=== PATIENT | male | born 1955 | race Caucasian/White ===

== ENCOUNTER 2018-09-07 04:54 | Inpatient (IN) | payer OTHER ==
[2018-09-07 05:52] LABS: #Basophils 0.2 thou/uL (0.0-0.2); #Eosinphils 0.3 thou/uL (0.0-0.7); #Lymphocytes 1.9 thou/uL (1.20-3.40); #Monocytes 1.1 thou/uL (0.11-0.59); #Neutrophils 9.3 thou/uL (1.40-6.50); %Basophils 1.5 % (0.0-1.0); %Lymphocytes 14.9 % (21.0-51.0); %Monocytes 8.7 % (0.0-10.0); %Neutrophils 72.8 % (42.0-75.0); Hemoglobin 15.9 g/dL (14.0-18.0); Mean Corpuscular HGB CONC 33.7 g/dL (32.0-36.0); Mean Corpuscular Hemoglobin 31.3 pg (27.0-31.0); Mean Corpuscular Volume 92.9 fL (78.0-98.0); Mean Platelet Volume 7.7 fL (7.4-10.4); Platelet Count 227 thou/uL (130-400); RBC Distribution Width 11.3 % (11.5-14.5); Red Blood Cell (RBC) Count 5.07 mill/uL (4.70-6.10); White Blood Cell (WBC) Count 12.7 thou/uL (4.8-10.8)
[2018-09-07 06:04] LABS: ALT (SGPT) 30 U/L (8-55); AST (SGOT) 25 U/L (5-34); Albumin 4.6 g/dL (3.4-4.8); Alkaline Phosphatase 74 U/L (40-150); Anion Gap 15 mmol/L (10-20); BUN (Urea Nitrogen) 23 mg/dL (8.4-25.7); Bilirubin, Total 0.6 mg/dL (0.2-1.2); CK (CPK) 351 U/L (30-200); Calc. Creatinine Clearance 0 mL/min (70-130); Calcium 9.3 mg/dL (7.8-10.44); Carbon Dioxide 22 mmol/L (23-31); Chloride 105 mmol/L (98-107); Estimated GFR-MDRD 73; Globulin 2.3 g/dL (2.4-3.5); Glucose 151 mg/dL (80-115); Lipase 22 U/L (8-78); Potassium 3.9 mmol/L (3.5-5.1); Protein, Total 6.9 g/dL (5.8-8.1); Sodium 138 mmol/L (136-145)
[2018-09-07 06:35] LABS: CKMB 8.7 ng/mL (0-6.6)
[2018-09-07] MEDS ORDERED: Aspirin Chewable 81 MG TAB ONE (06:41)
--- NOTE | 2018-09-07 07:49 | RAD ---
CHEST 1 VIEW: INDICATION: Midsternal left-sided chest pain. COMPARISON: None. FINDINGS: Low lung volumes accentuate the cardiac silhouette and pulmonary vasculature. No consolidation, pleu ral effusion, or pneumothorax evident. No acute osseous abnormality is evident. IMPRESSION: Low lung volumes. POS: BH
[2018-09-07] MEDS ORDERED: Ondansetron PF 4 MG/2 ML Vial IVP PRN (08:17)
[2018-09-07] MEDS ORDERED: Ondansetron ODT 4 MG TAB SL PRN (08:17)
[2018-09-07] MEDS ORDERED: Meloxicam 15 MG TAB PO PRN (09:06)
[2018-09-07] MEDS ORDERED: Dextrose 5% in Water 1,000 ML IV PRN (09:07)
[2018-09-07] MEDS ORDERED: Dextrose 50% Abboject 50 ML SYRINGE SLOW IVP PRN (09:07)
[2018-09-07] MEDS ORDERED: HumaLOG 300 UNITS/3 ML VIAL SC PRN ×2 (09:07)
[2018-09-07] MEDS ORDERED: Amlodipine 10 MG TAB PO SCH (09:15)
[2018-09-07 09:37] LABS: Troponin I 0.528 ng/mL (< 0.028)
[2018-09-07] MEDS ORDERED: Iopamidol 370 76% 100 ML VIAL ONE (09:54)
--- NOTE | 2018-09-07 12:04 | HP ---
CHIEF COMPLAINT: Chest pain. HISTORY OF PRESENT ILLNESS: Mr. Toscano is a 62-year-old man with a known history of hypertension, who presented to the emergency department this morning with complaints of chest pain. The patient states in retrospect he recalls having intermittent episodes of pain on the left side of his chest for the last 3 days with associated pain in his jaw bilaterally. He states it was not severe, approximately 5/10 in severity and therefore did not pay much attention to it. He recalls having significant discomfort yesterday around noon while eating and states it felt as if something got stuck in his throat. His gave him some apple cider vinegar, which he states helped to relieve what he thought was indigestion. He denies having any associated diaphoresis, nausea, or vomiting. No shortness of breath. He remained asymptomatic until 03:00 a.m. this morning when he woke up with left-sided chest pain again associated with discomfort in the jaw. The patient is unable to quantify how severe the pain was, but states that apart from the jaw pain, there is no radiation down his arms or through to his back. It lasted for approximately 1 hour, therefore prompting his family to bring him in for further assessment. The patient states since then he has had no recurring pain and no other symptoms. He has not had any lightheadedness or dizziness. Denies having any abdominal pain. No lower leg swelling. He has never experienced pain-like this in the past. He was evaluated in the emergency department and underwent an EKG that did not show any ST changes or T-wave abnormalities. He underwent laboratory studies, which were notable for a slightly elevated white count of 12.7 and an indeterminate troponin of 0.174 as well as a CK-MB of 8.7 and a CK of 351. The patient was admitted for further monitoring and cardiac investigations. Upon arriving to the floor, we received a call on a critical result for his second troponin, which is further elevated at 0.528. The patient remained asymptomatic at present. Of note, per the patient's following that episode of dysphagia yesterday, he was noted to be hypertensive with a systolic blood pressure in the 220s. Once the pain resolved on its own, his blood pressure eventually did settle down to the normal range. He typically runs in the 140s to 150s, but it did appears to have taken several hours to normalize. REVIEW OF SYSTEMS: Apart from those mentioned above in HPI, all other review of systems are negative. He does report a chronic cough, which remains unchanged, and denies having any sputum or hemoptysis. Again, no associated shortness of breath. PAST MEDICAL HISTORY: 1. Hypertension. 2. Arthritis. 3. Type-2 diabetes mellitus. 4. Tobacco use. PAST SURGICAL HISTORY: 1. Hernia repair. 2. Left knee surgery. SOCIAL HISTORY: The patient currently smokes and chews tobacco. Denies any illicit drug use. ALLERGIES: NO KNOWN DRUG ALLERGIES. CURRENT MEDICATIONS: 1. Amlodipine. 2. Metformin. 3. Meloxicam. PHYSICAL EXAMINATION: GENERAL: The patient appears well-developed, well-nourished, is in no acute distress. VITAL SIGNS: Temperature 97.6, pulse 76, respirations 14, O2 saturation 95% on room air, blood pressure 171/103. HEENT: Normocephalic, atraumatic. Pupils are equal, round, and reactive to light. Sclerae without icterus. Oropharynx is clear. NECK: Supple without lymphadenopathy. LUNGS: Clear to auscultation bilaterally without any wheezes or rhonchi. CARDIAC: Regular rate and rhythm. No chest wall tenderness. ABDOMEN: Obese, soft, nontender, nondistended. Normoactive bowel sounds present. No guarding or rigidity. No renal angle tenderness. EXTREMITIES: Without any edema or swelling. NEUROLOGIC: Alert and oriented x3. No neuro deficits. SKIN: Without rash or jaundice. LABORATORY AND IMAGING DATA: Laboratory investigations as mentioned above in HPI. Chest x-ray done on 09/07/2018. Low lung volumes accentuate the cardiac silhouette and pulmonary vasculature. No consolidation, pleural effusion, or pneumothorax. No bony abnormalities. IMPRESSION AND PLAN: Mr. Toscano is a 62-year-old man, who is being admitted for ACS rule out, who is presented with intermittent chest pain for the last 3 days, worse in early hours this morning with an indeterminate troponin in the Emergency Department. Second troponin is elevated further at 0.528. Cardiology consult placed and I have notified Dr. House. We have requested a repeat ECG. We will continue to monitor. At present, his blood pressure is 167/105. We will recheck since the patient has recently been given his morning dose of amlodipine. He remains asymptomatic. He has been given aspirin 325 mg in the ER. Otherwise, has not received any treatment. We will discuss with Dr. Garrett for further recommendations. The patient is a full code status. His surrogate decision maker is his , Eliane Toscano. Job ID: [id number]
[2018-09-07 12:20] LABS: Troponin I 2.277 ng/mL (< 0.028)
[2018-09-07] MEDS ORDERED: Sodium Chloride 0.9% 1,000 ML IV SCH ×2 (14:30→15:45)
[2018-09-07] MEDS ORDERED: Communication Order-Pharmacy FS SCH (14:30)
--- NOTE | 2018-09-07 14:49 | CON ---
DATE OF CONSULTATION: 09/07/2018 REASON FOR CONSULTATION: Non-STEMI. HISTORY OF PRESENT ILLNESS: Mr. Toscano is a very pleasant 62-year-old white gentleman, who comes to the hospital for chest pain. He has been having on and off chest pain for the last 3 days in the midsternal area. This morning, he woke up and he had severe midsternal chest pain, pretty much the same as before because it is becoming to be more prominent now at rest. He decided to come in for evaluation. He initially had a normal troponin, but has since increased to a positive range, so Cardiology has been consulted. On my evaluation, he is chest pain free. PAST MEDICAL HISTORY: 1. Hypertension. 2. Osteoarthritis. 3. Type 2 diabetes. 4. Tobacco use. PAST SURGICAL HISTORY: 1. Hernia repair. 2. Left knee surgery. SOCIAL HISTORY: He currently chews tobacco. Denies any drug or alcohol use. ALLERGIES: NO KNOWN DRUG ALLERGIES. OUTPATIENT MEDICATIONS: 1. Amlodipine 10 mg a day. 2. Metformin 1000 mg b.i.d. 3. Meloxicam. 4. Multivitamin daily. ALLERGIES: NO KNOWN DRUG ALLERGIES. FAMILY HISTORY: Noncontributory. REVIEW OF SYSTEMS: A 12-point review of systems was done and was all negative unless stated in the history of present illness. PHYSICAL EXAMINATION: VITAL SIGNS: Temperature 97.6, pulse 74, respiratory rate 18, saturating 94% on room air, and blood pressure 164/101. GENERAL: Awake, alert, and oriented x3, in no distress. HEENT: Normocephalic, atraumatic. NECK: Supple. LUNGS: Clear. CARDIOVASCULAR: S1 and S2. No S3 or S4. No murmurs. ABDOMEN: Soft. Positive bowel sounds. EXTREMITIES: No edema. SKIN: Warm and dry. LABORATORY DATA: Laboratory work was reviewed. White count of 12, hemoglobin 15, hematocrit 47, and platelet count 227. Chemistries were unremarkable. BUN and creatinine 23 and 1.03, GFR of 73. Troponin was 0.17, then 0.5, and then 2.27 with a CK-MB of 8.7. Albumin of 4.6. Lipase was normal. IMAGING DATA: EKG was reviewed. ASSESSMENT AND PLAN: 1. [id number] myocardial infarction. 2. Hypertension. 3. Type 2 diabetes. PLAN: 1. We will proceed with left heart catheterization. We spoke at length about the risks and benefits of the procedure. Risks included, but not limited to, stroke, CA, , bleeding, need for blood transfusion, limb loss, organ loss. He understands and verbalized understanding of this and agrees to proceed. Drug-eluting stents if needed. 2. Further recommendations per results of coronary angiogram. Job ID: [id number]
[2018-09-07] MEDS ORDERED: Diazepam 5 MG TAB PO SCH (15:00)
[2018-09-07 15:11] LABS: Troponin I 6.325 ng/mL (< 0.028)
[2018-09-07] MEDS ORDERED: Midazolam HCl 2 mg/2 ml Vial ONE (15:13)
[2018-09-07] MEDS ORDERED: Fentanyl 100 MCG/2 ML VIAL ONE (15:14)
[2018-09-07] MEDS ORDERED: Heparin 10,000 UNITS/1 ML VIAL ONE (15:14)
[2018-09-07] MEDS ORDERED: Nitroglycerin 0.4 MG TAB (25 Tab Bottle) SL PRN (15:40)
[2018-09-07] MEDS ORDERED: Sodium Chloride 0.9% 200 ML IV PRN (15:40)
[2018-09-07] MEDS ORDERED: Acetaminophen/Codeine 30-300mg Tablet PO PRN (15:40)
[2018-09-07] MEDS ORDERED: Aspirin 325 MG TAB PO SCH (15:45)
[2018-09-07] MEDS: Carvedilol 3.125 MG TAB PO SCH (18:21)
--- NOTE | 2018-09-07 19:04 | CON ---
DATE OF CONSULTATION: HISTORY OF PRESENT ILLNESS: This is a 62-year-old gentleman with a diagnosis of diabetes mellitus within the past year and longstanding hypertension, who began having some intermittent chest and jaw discomfort a several days ago with a more prolonged episode earlier this morning, prompting admission to the hospital, where he was noted to have an increase in his troponin peaking at about 6. He underwent cardiac catheterization today showing some calcification and otherwise normal LAD with discrete lesions and a larger first diagonal and a smaller second diagonal, a discrete lesion in the first obtuse marginal and second obtuse marginal essentially being normal and the distal circ being occluded or subtotally occluded filling from [id number] that was probably big enough to graft. His right system consisted of an acute marginal and a small PDA, both of which had some disease. The left ventricular systolic function appeared overall preserved and echo is pending at this time. PAST MEDICAL HISTORY: His past medical history as mentioned includes hypertension and the patient states that his hypertension is not real well controlled with typical systolic pressure being about 150 and diastolic pressure being about 80. Diabetes mellitus was diagnosed about a year ago and he was placed on medication and his A1c has gone from about 7 to about 5 on medication. PAST SURGICAL HISTORY: His past surgical history includes a knee arthroscopy and hernia repair. SOCIAL HISTORY: He is a nonsmoker, but does chew tobacco. He is . He is retired after 40 years at the [employer]. HOME MEDICATIONS: Included; 1. Amlodipine 10 mg a day. 2. Metformin 1000 b.i.d. 3. Meloxicam 15 mg p.r.n.. 4. Multivitamins. 5. He has had the addition of lisinopril 2.5 a day and Coreg 3.125 b.i.d. to his medical regimen. ALLERGIES: HE HAS NO KNOWN ALLERGIES. PHYSICAL EXAMINATION: GENERAL: On examination, he is alert and cooperative gentleman. Height 6 feet, weight recorded as 281 pounds, although certainly does not look that big. NECK: Right carotid bruit. LUNGS: Clear to auscultation. Cardiac: Regular rate and rhythm. No murmurs. ABDOMEN: Obese, soft, and nontender. No aneurysm. EXTREMITIES: He has palpable left radial pulse with a good Dominic's test. He has palpable pedal pulses in both feet with no peripheral edema. Cardiac catheterization was reviewed and he could have graft to the first diagonal, first obtuse marginal, and the distal circ. Other possible graft sites include the second diagonal, which was rather small as well as the acute marginal. I think the PDA is probably too small distally to graft. Informed consent has been obtained and tentatively plan on surgical intervention on Monday if the schedule permits. Job ID: [id number]
[2018-09-07] MEDS: Atorvastatin Calcium 40 MG TAB PO SCH (20:37)
--- NOTE | 2018-09-07 23:33 | ULT ---
BILATERAL CAROTID DUPLEX ULTRASOUND: HISTORY: Carotid bruit TECHNIQUE: Grayscale, color-flow and spectral Doppler ultrasound imaging of the extracranial carotid artery syst ems was performed bilaterally. FINDINGS: Only very minimal atherosclerotic plaque is seen at the left carotid bulb. There is no hemodynamically significant stenosis in the bilateral internal carotid arteries according to the peak systolic velocities and the ICA/CCA ratios. The peak systolic velocity in the right ICA measures 57.2 cm/s. The peak systolic velocity in the left ICA measures 56.3 cm/s. The right IC A/CCA ratio is 0.5 to with the left ICA/CCA ratio of 0.6. Vertebral arteries: Antegrade flow is demonstrated in the vertebral arteries bilaterally. IMPRESSION: No hemodynamically significant stenosis in the bilateral internal carotid arteries.
[2018-09-08] MEDS ORDERED: Diazepam 5 MG TAB PO PRN (00:24)
[2018-09-08] MEDS ORDERED: Lisinopril 2.5 MG TAB PO SCH (09:00)
[2018-09-08] MEDS ORDERED: Zolpidem Tartrate 5 MG TAB PO PRN (09:22)
[2018-09-08] MEDS: Aspirin 325 MG TAB PO SCH (09:42)
[2018-09-08] MEDS: Lisinopril 2.5 MG TAB PO SCH ×2 (09:42→20:06)
[2018-09-08] MEDS: Amlodipine 10 MG TAB PO SCH (09:43)
[2018-09-08] MEDS: Carvedilol 3.125 MG TAB PO SCH ×2 (09:43→16:25)
--- NOTE | 2018-09-08 10:07 | EKG ---
Test Reason : Blood Pressure : / mmHG Vent. Rate : 074 BPM Atrial Rate : 074 BPM P-R Int : 152 ms QRS Dur : 106 ms QT Int : 440 ms P-R-T Axes : -04 039 031 degrees QTc Int : 488 ms Normal sinus rhythm Prolonged QT Abnormal ECG When compared with ECG of 07-SEP-2018 05:09, (Unconfirmed) No significant change was found Confirmed by DR. Sagar LAKE (3) on 09/08/2018 10:06:55 AM Referred By: JENNIFER Confirmed By:DR. Sagar LAKE
[2018-09-08] MEDS: ALPRAZolam 0.25 MG TAB PO PRN ×2 (10:42→22:05)
--- NOTE | 2018-09-08 11:21 | PDOC.PN ---
- Subjective Encounter Start Date: 09/08/18 Encounter Start Time: 11:20 Patient seen and examined, all questions answered, brother at bedside, no new issues. - Objective Vital Signs & Weight: Vital Signs (12 hours) Temp Pulse Resp BP BP Pulse Ox 09/08/18 09:43 84 165/96 H 09/08/18 09:42 84 165/96 H 09/08/18 07:37 98.8 F 84 16 165/96 H 94 L 09/08/18 04:00 97.6 F 75 20 151/84 H 98 Weight Weight 280 lb 8 oz I&O: 09/07/18 09/08/18 09/09/18 06:59 06:59 06:59 Intake Total 1760 240 Output Total 2500 Balance -740 240 Result Diagrams: 09/07/18 05:31 09/07/18 05:31 Additional Labs: Accuchecks 09/08/18 09/07/18 09/07/18 05:32 20:41 16:16 POC Glucose 137 H 147 H 107 Phys Exam - Physical Examination Constitutional: NAD HEENT: PERRLA, moist MMs, sclera anicteric Neck: no nodes, no JVD, supple Respiratory: no wheezing, no rales, no rhonchi Cardiovascular: RRR, no significant murmur, no rub Gastrointestinal: soft, non-tender, no distention Musculoskeletal: no edema, pulses present Dx/Plan (1) CAD (coronary artery disease) Code(s): I25.10 - ATHSCL HEART DISEASE OF [place] CORONARY ARTERY W/O ANG PCTRS Status: Acute (2) Chest pain Code(s): R07.9 - CHEST PAIN, UNSPECIFIED Status: Acute (3) Hypertension Code(s): I10 - ESSENTIAL (PRIMARY) HYPERTENSION Status: Acute (4) NSTEMI (non-ST elevated myocardial infarction) Code(s): I21.4 - NON-ST ELEVATION (NSTEMI) MYOCARDIAL INFARCTION Status: Acute (5) HLD (hyperlipidemia) Code(s): E78.5 - HYPERLIPIDEMIA, UNSPECIFIED Status: Acute - Plan * pending CABG for monday * cont with current medical plan of care * case and plan d/w patient at length, brother at bedside, they understood and agreed with this plan.
--- NOTE | 2018-09-08 11:37 | EKG ---
Test Reason : Blood Pressure : / mmHG Vent. Rate : 084 BPM Atrial Rate : 084 BPM P-R Int : 146 ms QRS Dur : 098 ms QT Int : 412 ms P-R-T Axes : -10 004 042 degrees QTc Int : 486 ms Normal sinus rhythm Prolonged QT Abnormal ECG Confirmed by DR. Sagar LAKE (3) on 09/08/2018 11:36:33 AM Referred By: Confirmed By:DR. Sagar LAKE
[2018-09-08] MEDS: BEER 1 CAN PO SCH ×2 (11:54→16:42)
--- NOTE | 2018-09-08 15:42 | PDOC.CTH ---
Cardiology Progress Note - Subjective No new issues. No chest pain, tightness, pressure, SOB. - Objective Vital Signs Temp Pulse Resp BP BP Pulse Ox 09/08/18 11:50 70 18 148/95 H 94 L 09/08/18 09:43 84 165/96 H 09/08/18 09:42 84 165/96 H 09/08/18 07:37 98.8 F 84 16 165/96 H 94 L 09/08/18 04:00 97.6 F 75 20 151/84 H 98 Weight 280 lb 8 oz 09/07/18 09/08/18 09/09/18 06:59 06:59 06:59 Intake Total 1760 240 Output Total 2500 Balance -740 240 - Physical Examination General/Neuro: alert & oriented x3, NAD Neck: no JVD present Lungs: unlabored respirations Heart: RRR Abdomen: NT/ND Extremities: + edema B (No edema) - Telemetry Telemetry Rhythm: NSR - Labs Result Diagrams: 09/07/18 05:31 09/07/18 05:31 Troponin/CKMB CK-MB (CK-2) 8.7 ng/mL (0-6.6) H* 09/07/18 05:31 Troponin I 6.325 ng/mL (< 0.028) H* 09/07/18 14:29 - Assessment/Plan 1. NSTEMI 2. Multivessel CAD. 3. HTN 4. Tobacco use 5. T2DM. PLAN: - Discussed case with Dr. Millan who feels we can revascularize all arteries involved. - CABG planned for next week.
[2018-09-08] MEDS: Atorvastatin Calcium 40 MG TAB PO SCH (20:06)
[2018-09-09] MEDS: Amlodipine 10 MG TAB PO SCH (08:11)
[2018-09-09] MEDS: Lisinopril 2.5 MG TAB PO SCH ×2 (08:11→19:56)
[2018-09-09] MEDS: Aspirin 325 MG TAB PO SCH (08:12)
[2018-09-09] MEDS: Carvedilol 3.125 MG TAB PO SCH ×2 (08:12→16:06)
[2018-09-09] MEDS: ALPRAZolam 0.25 MG TAB PO PRN ×3 (08:14→21:36)
[2018-09-09] MEDS: BEER 1 CAN PO SCH ×3 (08:16→17:05)
--- NOTE | 2018-09-09 11:05 | PDOC.PN ---
- Subjective Encounter Start Date: 09/09/18 Encounter Start Time: 11:04 Patient seen and examined, no new issues. - Objective Vital Signs & Weight: Vital Signs (12 hours) Temp Pulse Resp BP BP Pulse Ox 09/09/18 08:12 94 L 09/09/18 08:11 77 127/75 09/09/18 08:10 97.5 F L 77 20 127/75 94 L 09/09/18 03:35 97.5 F L 73 16 140/85 94 L Weight Weight 280 lb 8 oz I&O: 09/08/18 09/09/18 09/10/18 06:59 06:59 06:59 Intake Total 1760 1440 Output Total 2500 Balance -740 1440 Result Diagrams: 09/07/18 05:31 09/07/18 05:31 Additional Labs: Accuchecks 09/09/18 09/08/18 09/08/18 05:22 20:37 17:50 POC Glucose 135 H 117 H 112 H 09/08/18 11:05 POC Glucose 123 H Phys Exam - Physical Examination Constitutional: NAD HEENT: PERRLA, moist MMs, sclera anicteric Neck: no nodes, no JVD, supple Respiratory: no wheezing, no rales, no rhonchi Cardiovascular: RRR, no significant murmur, no rub Gastrointestinal: soft, non-tender, no distention, positive bowel sounds Musculoskeletal: no edema, pulses present Dx/Plan (1) CAD (coronary artery disease) Code(s): I25.10 - ATHSCL HEART DISEASE OF [place] CORONARY ARTERY W/O ANG PCTRS Status: Acute (2) Chest pain Code(s): R07.9 - CHEST PAIN, UNSPECIFIED Status: Acute (3) Hypertension Code(s): I10 - ESSENTIAL (PRIMARY) HYPERTENSION Status: Acute (4) NSTEMI (non-ST elevated myocardial infarction) Code(s): I21.4 - NON-ST ELEVATION (NSTEMI) MYOCARDIAL INFARCTION Status: Acute (5) HLD (hyperlipidemia) Code(s): E78.5 - HYPERLIPIDEMIA, UNSPECIFIED Status: Acute - Plan * CABG for monday * cont current medical plan of care no changes * labs in AM
--- NOTE | 2018-09-09 16:29 | PDOC.CTH ---
Cardiology Progress Note - Subjective No new issues. No chest pain. - Objective Vital Signs Temp Pulse Resp BP BP Pulse Ox 09/09/18 15:55 97.7 F 81 16 139/87 94 L 09/09/18 12:16 97.6 F 83 16 141/87 H 92 L 09/09/18 08:12 94 L 09/09/18 08:11 77 127/75 09/09/18 08:10 97.5 F L 77 20 127/75 94 L Weight 280 lb 8 oz 09/08/18 09/09/18 09/10/18 06:59 06:59 06:59 Intake Total 1760 1440 Output Total 2500 Balance -740 1440 - Physical Examination General/Neuro: alert & oriented x3, NAD Neck: no JVD present Lungs: CTA, unlabored respirations Heart: RRR Abdomen: NT/ND Extremities: other: (no edema) - Telemetry Telemetry Rhythm: NSR - Labs Result Diagrams: 09/07/18 05:31 09/07/18 05:31 Troponin/CKMB CK-MB (CK-2) 8.7 ng/mL (0-6.6) H* 09/07/18 05:31 Troponin I 6.325 ng/mL (< 0.028) H* 09/07/18 14:29 - Assessment/Plan 1. NSTEMI 2. Multivessel CAD. 3. HTN 4. Tobacco use 5. T2DM. PLAN: - CABG planned for next week. - Continue all other meds.
[2018-09-09] MEDS: Atorvastatin Calcium 40 MG TAB PO SCH (19:55)
[2018-09-10] MEDS ORDERED: Communication Order-Pharmacy FS SCH (05:54)
[2018-09-10] MEDS: Lisinopril 2.5 MG TAB PO SCH ×2 (08:35→20:02)
[2018-09-10] MEDS: ALPRAZolam 0.25 MG TAB PO PRN ×3 (08:36→22:01)
[2018-09-10] MEDS: Amlodipine 10 MG TAB PO SCH (08:36)
[2018-09-10] MEDS: Carvedilol 3.125 MG TAB PO SCH ×2 (08:37→15:55)
[2018-09-10] MEDS: Aspirin 325 MG TAB PO SCH (08:37)
[2018-09-10] MEDS: BEER 1 CAN PO SCH ×3 (08:37→18:39)
--- NOTE | 2018-09-10 16:26 | PDOC.PN ---
- Subjective Encounter Start Date: 09/10/18 Encounter Start Time: 16:25 Subjective: feels well. no new complaints -: no CP/SOB/edema -: no tremors/hallucinations - Objective MAR Reviewed: Yes Vital Signs & Weight: Vital Signs (12 hours) Temp Pulse Resp BP Pulse Ox 09/10/18 15:53 97.9 F 77 16 139/95 H 94 L 09/10/18 12:00 98 F 82 20 147/86 H 95 09/10/18 08:36 72 09/10/18 08:35 72 09/10/18 08:34 72 146/85 H 09/10/18 07:30 97.7 F 75 18 150/102 H 95 Weight Weight 280 lb 8 oz I&O: 09/09/18 09/10/18 09/11/18 06:59 06:59 06:59 Intake Total 1440 2100 480 Balance 1440 2100 480 Result Diagrams: 09/07/18 05:31 09/07/18 05:31 Additional Labs: Accuchecks 09/10/18 09/10/18 09/09/18 10:46 05:11 20:26 POC Glucose 131 H 117 H 120 H 09/09/18 16:58 POC Glucose 106 Laboratory Tests 09/07/18 09/07/18 09/07/18 05:31 08:45 11:41 Troponin I 0.174 H 0.528 H* 2.277 H* 09/07/18 14:29 Troponin I 6.325 H* Phys Exam - Physical Examination Constitutional: NAD HEENT: PERRLA, moist MMs, sclera anicteric, oral pharynx no lesions Neck: no nodes, no JVD, supple, full ROM Respiratory: no wheezing, no rales, no rhonchi, clear to auscultation bilateral Cardiovascular: RRR, no significant murmur Gastrointestinal: soft, non-tender, no distention, positive bowel sounds Musculoskeletal: no edema, pulses present Neurological: non-focal, normal sensation, moves all 4 limbs Psychiatric: normal affect, A&O x 3 Skin: no rash Dx/Plan (1) NSTEMI (non-ST elevated myocardial infarction) Code(s): I21.4 - NON-ST ELEVATION (NSTEMI) MYOCARDIAL INFARCTION Status: Acute Comment: on ASA.statin,BB and JOHN-I (2) CAD (coronary artery disease) Code(s): I25.10 - ATHSCL HEART DISEASE OF [place] CORONARY ARTERY W/O ANG PCTRS Status: Acute Comment: Per Cath this admission.Multivessel disease. On schedule for CABG. cont ASA,statin,BB,john-i (3) HLD (hyperlipidemia) Code(s): E78.5 - HYPERLIPIDEMIA, UNSPECIFIED Status: Acute (4) Hypertension Code(s): I10 - ESSENTIAL (PRIMARY) HYPERTENSION Status: Acute (5) Chest pain Code(s): R07.9 - CHEST PAIN, UNSPECIFIED Status: Resolved Comment: d/t #1 - Plan plan discussed w/ family, DVT proph w/SCDs CABG likley tomorrow -: HD stable -: labs in am -: cont meds as above * . Review of Systems - Review of Systems Constitutional: negative: fever, chills, sweats, weakness, malaise, other ENT: negative: Ear Pain, Ear Discharge, Nose Pain, Nose Discharge, Nose Congestion, Mouth Pain, Mouth Swelling, Throat Pain, Throat Swelling, Other Respiratory: negative: Cough, Dry, Shortness of Breath, Hemoptysis, SOB with Excertion, Pleuritic Pain, Sputum, Wheezing Cardiovascular: negative: chest pain, palpitations, orthopnea, paroxysmal nocturnal dyspnea, edema, light headedness, other Gastrointestinal: negative: Nausea, Vomiting, Abdominal Pain, Diarrhea, Constipation, Melena, Hematochezia, Other Genitourinary: negative: Dysuria, Frequency, Incontinence, Hematuria, Retention , Other Musculoskeletal: negative: Neck Pain, Shoulder Pain, Arm Pain, Back Pain, Hand Pain, Leg Pain, Foot Pain, Other Neurological: negative: Weakness, Numbness, Incoordination, Change in Speech, Confusion, Seizures, Other - Medications/Allergies Allergies/Adverse Reactions: Allergies Allergy/AdvReac Type Severity Reaction Status Date / Time No Known Allergies Allergy Verified 09/07/18 08:02 Medications: Current Medications Acetaminophen/Codeine Phosphate (Tylenol #3) 1 tab PO Q4H PRN PRN Reason: Mild Pain (1-3) Stop: 09/11/18 08:59 Alprazolam (Xanax) 0.25 mg PO TIDPRN PRN PRN Reason: Anxiety Stop: 09/11/18 08:59 Last Admin: 09/10/18 15:55 Dose: 0.25 mg Amlodipine Besylate (Norvasc) 10 mg PO DAILY [facility] Stop: 09/11/18 08:59 Last Admin: 09/10/18 08:36 Dose: 10 mg Aspirin (Aspirin) 325 mg PO DAILY [facility] Stop: 09/11/18 08:59 Last Admin: 09/10/18 08:37 Dose: 325 mg Atorvastatin Calcium (Lipitor) 40 mg PO HS [facility] Stop: 09/11/18 08:59 Last Admin: 09/09/18 19:55 Dose: 40 mg Beer (Beer) 1 each PO TID-[facility] Stop: 09/11/18 08:59 Last Admin: 09/10/18 12:12 Dose: 1 each Carvedilol (Coreg) 3.125 mg PO BID-[facility] Last Admin: 09/10/18 15:55 Dose: 3.125 mg Dextrose/Water (Dextrose 50%) 25 gm SLOW IVP PRN PRN PRN Reason: Hypoglycemia Stop: 09/11/18 08:59 Diazepam (Valium) 5 mg PO Q24H PRN PRN Reason: Anxiety Stop: 09/11/18 08:59 Last Admin: 09/08/18 00:42 Dose: 5 mg Glucagon (Glucagon) 1 mg IM PRN PRN PRN Reason: Hypoglycemia Stop: 09/11/18 08:59 Dextrose/Water (D5w) 1,000 mls @ 0 mls/hr IV .Q0M PRN PRN Reason: Hypoglycemia Stop: 09/11/18 08:59 Sodium Chloride (Normal Saline 0.9%) 200 mls @ 0 mls/hr IV ONE PRN PRN Reason: SBP < 90 Stop: 09/11/18 08:59 Insulin Human Lispro (Humalog) 0 units SC .MILD SLIDING SCALE PRN PRN Reason: Mild Correctional Scale Stop: 09/11/18 08:59 Insulin Human Lispro (Humalog) 0 units SC .BEDTIME SLIDING SC PRN PRN Reason: Bedtime Correctional Scale Stop: 09/11/18 08:59 Lisinopril (Zestril) 2.5 mg PO BID [facility] Last Admin: 09/10/18 08:35 Dose: 2.5 mg Meloxicam (Mobic) 15 mg PO DAILY PRN PRN Reason: Pain Stop: 09/11/18 08:59 Miscellaneous Information (Communication Order-Pharmacy) 1 each FS ONE [facility]I Stop: 09/11/18 12:00 Nitroglycerin (Nitrostat) 0.4 mg SL Q5MIN PRN PRN Reason: Chest Pain Stop: 09/11/18 08:59 Zolpidem Tartrate (Ambien) 5 mg PO HSPRN PRN PRN Reason: Insomnia Stop: 09/11/18 08:59
--- NOTE | 2018-09-10 16:58 | PDOC.CTH ---
Cardiology Progress Note - Subjective Doing well. No chest pain. - Objective Vital Signs Temp Pulse Resp BP Pulse Ox 09/10/18 15:53 97.9 F 77 16 139/95 H 94 L 09/10/18 12:00 98 F 82 20 147/86 H 95 09/10/18 08:36 72 09/10/18 08:35 72 09/10/18 08:34 72 146/85 H 09/10/18 07:30 97.7 F 75 18 150/102 H 95 Weight 280 lb 8 oz 09/09/18 09/10/18 09/11/18 06:59 06:59 06:59 Intake Total 1440 2100 480 Balance 1440 2100 480 - Physical Examination General/Neuro: alert & oriented x3, NAD Neck: no JVD present Lungs: CTA, unlabored respirations Heart: RRR Abdomen: NT/ND Extremities: other: (no edmea) - Telemetry Telemetry Rhythm: NSR - Labs Result Diagrams: 09/07/18 05:31 09/07/18 05:31 Troponin/CKMB CK-MB (CK-2) 8.7 ng/mL (0-6.6) H* 09/07/18 05:31 Troponin I 6.325 ng/mL (< 0.028) H* 09/07/18 14:29 - Assessment/Plan 1. NSTEMI 2. Multivessel CAD. 3. HTN 4. Tobacco use 5. T2DM. PLAN: - CABG planned for tomorrow. - Continue all other meds.
[2018-09-10] MEDS: Atorvastatin Calcium 40 MG TAB PO SCH (20:03)
[2018-09-11 04:57] LABS: #Basophils 0.1 thou/uL (0.0-0.2); #Eosinphils 0.3 thou/uL (0.0-0.7); #Lymphocytes 3.1 thou/uL (1.20-3.40); #Monocytes 0.7 thou/uL (0.11-0.59); #Neutrophils 5.8 thou/uL (1.40-6.50); %Basophils 0.6 % (0.0-1.0); %Eosinophils 3.1 % (0.0-10.0); %Lymphocytes 30.9 % (21.0-51.0); %Monocytes 6.9 % (0.0-10.0); %Neutrophils 58.5 % (42.0-75.0); Hemoglobin 16.4 g/dL (14.0-18.0); Mean Corpuscular HGB CONC 33.3 g/dL (32.0-36.0); Mean Corpuscular Volume 93.1 fL (78.0-98.0); Mean Platelet Volume 7.8 fL (7.4-10.4); Platelet Count 230 thou/uL (130-400); RBC Distribution Width 11.3 % (11.5-14.5); White Blood Cell (WBC) Count 9.9 thou/uL (4.8-10.8)
[2018-09-11] MEDS: Carvedilol 3.125 MG TAB PO SCH (05:15)
[2018-09-11] MEDS: Lisinopril 2.5 MG TAB PO SCH (05:15)
[2018-09-11 05:17] LABS: Anion Gap 15 mmol/L (10-20); BUN (Urea Nitrogen) 17 mg/dL (8.4-25.7); Calc. Creatinine Clearance 111 mL/min (70-130); Carbon Dioxide 25 mmol/L (23-31); Chloride 104 mmol/L (98-107); Estimated GFR-MDRD 59; Glucose 119 mg/dL (80-115); Potassium 4.7 mmol/L (3.5-5.1); Sodium 139 mmol/L (136-145)
[2018-09-11] MEDS ORDERED: Albumin 5% 0 ML ONE (06:38)
[2018-09-11] MEDS ORDERED: Heparin 10,000 UNITS/1 ML VIAL 30,000 UNITS in Sodium Chloride 0.9% 1,000 ML FS SCH (06:45)
[2018-09-11] MEDS ORDERED: Albumin 5% 500 ML ONE (07:02)
[2018-09-11] MEDS ORDERED: Insulin Regular 300 UNITS/3 ML VIAL ONE ×2 (07:02→12:18)
[2018-09-11] MEDS ORDERED: Midazolam HCl 2 mg/2 ml Vial ONE (07:09)
[2018-09-11] MEDS ORDERED: Fentanyl 100 MCG/2 ML VIAL ONE (07:09)
[2018-09-11] MEDS ORDERED: Midazolam HCl 5 mg/5 ml Vial ONE (08:14)
[2018-09-11] MEDS ORDERED: Fentanyl 250 MCG/5 ML VIAL ONE ×2 (08:14→09:24)
[2018-09-11] MEDS ORDERED: PHENYLEPHRINE-NS 100 MCG/ML 10 ML SYRINGE ONE ×2 (10:10→14:05)
[2018-09-11] MEDS: BEER 1 CAN PO SCH (10:50)
[2018-09-11] MEDS ORDERED: Mag-Al 1200 mg/1200 mg/30 ML UDCUP PO PRN (11:39)
[2018-09-11] MEDS ORDERED: Promethazine HCl 25 MG/ML VIAL IM PRN (11:39)
[2018-09-11] MEDS ORDERED: Hetastarch 6% 500 ML 500 ML IVPB PRN (11:39)
[2018-09-11] MEDS ORDERED: Nitroglycerin 50 MG/250 ML BOT 250 ML IVPB PRN (11:39)
[2018-09-11] MEDS ORDERED: Norepinephrine 8 MG/0.9% NS 250 ML IVPB PRN (11:39)
[2018-09-11] MEDS ORDERED: Acetaminophen 325 MG TAB PO PRN (11:39)
[2018-09-11] MEDS ORDERED: Fentanyl 100 MCG/2 ML VIAL SLOW IVP PRN ×2 (11:39)
[2018-09-11] MEDS ORDERED: Bisacodyl 10 MG SUPP PR PRN (11:39)
[2018-09-11] MEDS ORDERED: Bisacodyl 5 MG TAB PO PRN (11:39)
[2018-09-11] MEDS ORDERED: Guaifenesin DM 100-10/5 ML UDCUP PO PRN (11:39)
[2018-09-11] MEDS ORDERED: HYDROcodone/Acetaminophen 5/325 mg Tablet PO PRN (11:39)
[2018-09-11] MEDS ORDERED: DOPamine 400 MG/D5W 250 ML 250 ML IVPB PRN (11:39)
[2018-09-11] MEDS ORDERED: hydrALAZINE 20 MG/ML VIAL SLOW IVP PRN (11:39)
[2018-09-11] MEDS ORDERED: Post-Op Insulin Drip Protocol IVPB ONE (11:39)
[2018-09-11] MEDS ORDERED: Morphine 2 MG/ML SYRINGE SLOW IVP PRN (11:39)
[2018-09-11] MEDS ORDERED: Magnesium 2 GM/50 ML 2 GM in Premix Bag 1 BAG IVPB SCH (11:45)
[2018-09-11 11:58] LABS: Actual Bicarbonate (HCO3a) 24.1 mEq/L (22-28); Base Excess (BEa) -3.2 mEq/L (-2.0 to +3.0); Calcium, Ionized 1.09 mmol/L (1.12-1.30); Carboxyhemoglobin (COHb) 0.8 gm% (0.0-3.0); Hemoglobin (Hb) 13.9 g/dL (14.0-18.0); O2 Tension (PaO2) 75.1 mmHg (> 80.0); Potassium - ABG Lab 4.49 mmol/L (3.70-5.30); Puncture Site LINE; pH, Arterial 7.28 (7.35-7.45)
--- NOTE | 2018-09-11 12:04 | RAD ---
Chest one view HISTORY: Heart surgery. COMPARISON: 09/07/2018. FINDINGS: Cardiac silhouette is magnified and enlarged. Mediastinum is midline with radiopaque drain and postoperative changes. Tip of an endotracheal catheter overlies the thoracic inlet. Tip of a right subclavian central venous catheter overlies the cavoatrial junction. Significant bibasilar atel ectasis. Right thoracostomy tube in place. No significant residual pneumothorax. Pulmonary vasculature is slightly engorged. monitoring and evaluation advisor leads overlie the chest. IMPRESSION: Interval postoperative changes mediastinum. Lines and tubes in good radiographic position . Bibasilar atelectasis. Pulmonary vascular prominence.
[2018-09-11 12:14] LABS: #Eosinphils 0.2 thou/uL (0.0-0.7); #Lymphocytes 2.1 thou/uL (1.20-3.40); #Monocytes 1.1 thou/uL (0.11-0.59); #Neutrophils 15.1 thou/uL (1.40-6.50); %Basophils 0.2 % (0.0-1.0); %Lymphocytes 11.4 % (21.0-51.0); %Monocytes 5.9 % (0.0-10.0); %Neutrophils 81.4 % (42.0-75.0); Hemoglobin 13.7 g/dL (14.0-18.0); Mean Corpuscular HGB CONC 33.7 g/dL (32.0-36.0); Mean Corpuscular Hemoglobin 31.5 pg (27.0-31.0); Mean Corpuscular Volume 93.5 fL (78.0-98.0); Platelet Count 192 thou/uL (130-400); RBC Distribution Width 11.2 % (11.5-14.5); Red Blood Cell (RBC) Count 4.37 mill/uL (4.70-6.10); White Blood Cell (WBC) Count 18.5 thou/uL (4.8-10.8)
[2018-09-11 12:18] LABS: PTT 29.1 SEC (22.9-36.1)
[2018-09-11 12:19] LABS: INR-International Normal Ratio 1.3; Prothrombin Time 16.6 SEC (12.0-14.7)
[2018-09-11] MEDS ORDERED: Ketorolac Tromethamine 30 MG/ML VIAL ONE (12:23)
[2018-09-11 12:41] LABS: Anion Gap 14 mmol/L (10-20); BUN (Urea Nitrogen) 17 mg/dL (8.4-25.7); Calc. Creatinine Clearance 133 mL/min (70-130); Carbon Dioxide 23 mmol/L (23-31); Chloride 108 mmol/L (98-107); Estimated GFR-MDRD 72; Glucose 147 mg/dL (80-115); Potassium 4.5 mmol/L (3.5-5.1); Sodium 140 mmol/L (136-145)
[2018-09-11] MEDS ORDERED: Dextrose 50% Abboject 50 ML SYRINGE SLOW IVP PRN (12:56)
[2018-09-11] MEDS ORDERED: Dextrose 5% in Water 1,000 ML IV PRN (12:56)
[2018-09-11] MEDS ORDERED: HUMULIN R 100 UNITS in Sodium Chloride 0.9% 100 ML IVPB SCH (12:56)
[2018-09-11] MEDS: Sodium Chloride 0.9% 1,000 ML IV SCH ×2 (12:58→21:24)
[2018-09-11] MEDS: Ketorolac Tromethamine 30 MG/ML VIAL IVP SCH ×3 (12:58→23:29)
[2018-09-11] MEDS: CEFAZOLIN 2 GM in Premix Bag 1 BAG IVPB SCH ×2 (13:05→23:30)
[2018-09-11 13:13] LABS: Actual Bicarbonate (HCO3a) 21.6 mEq/L (22-28); Base Excess (BEa) -3.8 mEq/L (-2.0 to +3.0); CO2 Tension 40.6 mmHg (35.0-45.0); Calcium, Ionized 1.06 mmol/L (1.12-1.30); Carboxyhemoglobin (COHb) 1.3 gm% (0.0-3.0); Hemoglobin (Hb) 14.4 g/dL (14.0-18.0); O2 Tension (PaO2) 64.9 mmHg (> 80.0); pH, Arterial 7.34 (7.35-7.45)
[2018-09-11 13:14] LABS: Puncture Site LINE
[2018-09-11] MEDS ORDERED: Aminocaproic Acid 5 GM/20 ML VIAL ONE (14:05)
[2018-09-11] MEDS ORDERED: Potassium Chloride 60 MEQ/30 ML VIAL ONE (14:05)
[2018-09-11] MEDS ORDERED: Nitroglycerin 50 MG/250 ML BOT ONE (14:05)
[2018-09-11] MEDS ORDERED: Protamine Sulfate 250 MG/25 ML VIAL ONE (14:05)
[2018-09-11] MEDS ORDERED: Vecuronium 10 MG VIAL ONE (14:05)
[2018-09-11] MEDS ORDERED: Heparin 5,000 UNITS/ML VIAL ONE (14:05)
[2018-09-11] MEDS ORDERED: Calcium Chloride 1 GM/10 ML Abboject SYRINGE ONE (14:05)
[2018-09-11] MEDS ORDERED: Thrombin 5000 UNITS/5 ML VIAL ONE (14:05)
[2018-09-11] MEDS ORDERED: Sodium Bicarb 50 MEQ/50 ML VIAL ONE (14:05)
[2018-09-11] MEDS ORDERED: Lidocaine 2% PF 100 mg/5 ml Syringe ONE (14:05)
[2018-09-11] MEDS ORDERED: Magnesium 5 GM/10 ML VIAL ONE (14:05)
[2018-09-11] MEDS ORDERED: Heparin 30,000 units/30 ml VIAL ONE (14:05)
[2018-09-11] MEDS ORDERED: Papaverine 60 MG/2 ML VIAL ONE (14:05)
[2018-09-11] MEDS ORDERED: Cardioplegic Soln 1,000 ML BAG ONE (14:05)
[2018-09-11] MEDS ORDERED: Rocuronium Bromide 10 MG/ML (10ML VIAL) ONE (14:05)
[2018-09-11] MEDS ORDERED: Mannitol 12.5 GM/50 ML ONE (14:05)
[2018-09-11] MEDS ORDERED: PROPOFOL 200 MG/20 ML VIAL ONE (14:05)
--- NOTE | 2018-09-11 14:18 | PDOC.PN ---
- Subjective Encounter Start Date: 09/11/18 Encounter Start Time: 14:17 Subjective: s/p CABGX5 vessels.seen and examined in CCU -: pt groggy but sedation now off.plans for extubation soon - Objective MAR Reviewed: Yes Vital Signs & Weight: Vital Signs (12 hours) Temp Pulse Resp BP Pulse Ox 09/11/18 13:20 78 20 94 L 09/11/18 12:32 73 09/11/18 11:39 77 09/11/18 03:38 97.4 F L 69 18 135/77 96 Weight Weight 280 lb 8 oz I&O: 09/10/18 09/11/18 09/12/18 06:59 06:59 06:59 Intake Total 2100 1760 Output Total 400 Balance 2100 1360 Result Diagrams: 09/11/18 12:01 09/11/18 12:01 Additional Labs: Accuchecks 09/11/18 09/11/18 09/10/18 12:17 05:21 20:29 POC Glucose 145 H 130 H 128 H 09/10/18 09/10/18 20:29 16:24 POC Glucose 128 H 98 Phys Exam - Physical Examination Constitutional: NAD intubated.wakes up when called by name HEENT: PERRLA, moist MMs, sclera anicteric, oral pharynx no lesions Neck: no nodes, no JVD Respiratory: no wheezing, no rales, no rhonchi Cardiovascular: RRR, no significant murmur Gastrointestinal: soft, non-tender, no distention, positive bowel sounds Musculoskeletal: no edema, pulses present Neurological: moves all 4 limbs Deviation from normal: post op sedation Skin: no rash Dx/Plan (1) NSTEMI (non-ST elevated myocardial infarction) Code(s): I21.4 - NON-ST ELEVATION (NSTEMI) MYOCARDIAL INFARCTION Status: Acute Comment: on ASA.statin,BB and JOHN-I (2) CAD (coronary artery disease) Code(s): I25.10 - ATHSCL HEART DISEASE OF [place] CORONARY ARTERY W/O ANG PCTRS Status: Acute Comment: Per Cath this admission.Multivessel disease. S/P CABG 09/11/18. cont ASA,statin,BB,john-i (3) HLD (hyperlipidemia) Code(s): E78.5 - HYPERLIPIDEMIA, UNSPECIFIED Status: Acute (4) Hypertension Code(s): I10 - ESSENTIAL (PRIMARY) HYPERTENSION Status: Acute (5) Chest pain Code(s): R07.9 - CHEST PAIN, UNSPECIFIED Status: Resolved Comment: d/t #1 - Plan PT/OT, DVT proph w/SCDs post op care.supportive care -: weaning per CCU team -: am labs * . Review of Systems - Medications/Allergies Allergies/Adverse Reactions: Allergies Allergy/AdvReac Type Severity Reaction Status Date / Time No Known Allergies Allergy Verified 09/07/18 08:02 Medications: Current Medications Acetaminophen (Tylenol) 650 mg PO Q6H PRN PRN Reason: Headache/Fever Or Mild Pain Hydrocodone Bitart/Acetaminophen ([place] 5/325) 1 tab PO Q4H PRN PRN Reason: Moderate Pain (4-6) Hydrocodone Bitart/Acetaminophen ([place] 5/325) 2 tab PO Q4H PRN PRN Reason: Severe Pain (7-10) Al Hydroxide/Mg Hydroxide (Maalox) 30 ml PO Q4H PRN PRN Reason: Indigestion Albumin Human (Albumin 5%) 12.5 gm IVPB Q6H PRN PRN Reason: To Maintain SBP> 90 mmHG Stop: 09/12/18 11:40 Albumin Human (Albumin 5%) 25 gm IVPB Q6H PRN PRN Reason: To Maintain SBP > 90 mmHG Stop: 09/12/18 11:40 Albuterol/Ipratropium (Duoneb) 3 ml NEB [id number] PRN PRN Reason: SHORTNESS OF BREATH Aspirin (Aspirin) 325 mg PO DAILY SHAJI Atorvastatin Calcium (Lipitor) 10 mg PO QPM SHAJI Bisacodyl (Dulcolax) 10 mg PO Q12H PRN PRN Reason: Constipation Bisacodyl (Dulcolax) 10 mg CO Q12H PRN PRN Reason: Constipation Dextrose/Water (Dextrose 50%) 25 gm SLOW IVP PRN PRN PRN Reason: PER HYPOGLYCEMIC PROTOCOL Famotidine (Pepcid) 20 mg SLOW IVP Q12HR SHAJI Fentanyl (Sublimaze) 25 mcg SLOW IVP Q2H PRN PRN Reason: Moderate Pain (4-6) Stop: 09/13/18 11:34 Fentanyl (Sublimaze) 50 mcg SLOW IVP Q2H PRN PRN Reason: Severe Pain (7-10) Stop: 09/13/18 11:34 Glucagon (Glucagon) 1 mg SC PRN PRN PRN Reason: PER HYPOGLYCEMIC PROTOCOL Guaifenesin/Dextromethorphan (Robitussin Dm) 15 ml PO Q4H PRN PRN Reason: Cough Hydralazine HCl (Apresoline) 10 mg SLOW IVP Q6H PRN PRN Reason: To Maintain SBP< 140mmHG Cefazolin Sodium/Dextrose 2 gm (/ Device) 50 mls @ 100 mls/hr IVPB 0700,1500, 2300 SHAJI Stop: 09/12/18 07:29 Last Admin: 09/11/18 13:05 Dose: 50 mls Dopamine HCl/Dextrose (Dopamine 400 Mg/D5w 250 Ml) 250 mls @ 0 mls/hr IVPB PRN PRN; Protocol PRN Reason: To maintain SBP > 90 mmHG Hetastarch/Sodium Chloride ([place]) 500 mls @ 0 mls/hr IVPB PRN PRN PRN Reason: To Maintain SBP > 90mmHg Stop: 09/12/18 11:34 Norepinephrine Bitartrate (Levophed) 250 mls @ 0 mls/hr IVPB PRN PRN; Protocol PRN Reason: To maintain SBP > 90 mmHG Nicardipine HCl 25 mg/ Sodium (Chloride) 260 mls @ 0 mls/hr IVPB INF PRN; Protocol PRN Reason: To Maintain SBP< 140mmHG Nitroglycerin/Dextrose (Nitroglycerin 50 Mg/250 Ml Bot) 250 mls @ 0 mls/hr IVPB PRN PRN; Protocol PRN Reason: To Maintain SBP< 140mmHG Sodium Chloride (Normal Saline 0.9%) 1,000 mls @ 100 mls/hr IV .Q10H SHAJI Last Admin: 09/11/18 12:58 Dose: 1,000 mls Insulin Human Regular 100 (units/ Sodium Chloride) 101 mls @ 0 mls/hr IVPB INF SHAJI; Protocol Dextrose/Water (D5w) 1,000 mls @ 0 mls/hr IV INF PRN PRN Reason: PRN HYPOGLYCEMIC PROTOCOL Insulin Glargine (Lantus) 0 units SC ONE PRN PRN Reason: PER OPEN HEART ORDERS Stop: 09/11/18 23:00 Insulin Human Regular (Humulin R) 0 units SC Q4H PRN; Protocol PRN Reason: POST OP SLIDING SCALE Ketorolac Tromethamine (Toradol) 15 mg IVP Q6HR SHAJI Stop: 09/14/18 12:01 Last Admin: 09/11/18 12:58 Dose: Not Given Morphine Sulfate (Morphine) 2 mg SLOW IVP Q15MIN PRN PRN Reason: Severe Pain (7-10) Ondansetron HCl (Zofran) 4 mg IVP Q6H PRN PRN Reason: Nausea/Vomiting Potassium Chloride (Kcl) 20 meq IVPB PRN PRN PRN Reason: K level </= 4.0 Promethazine HCl (Phenergan) 6.25 mg IM Q4H PRN PRN Reason: Nausea/Vomiting
[2018-09-11 14:29] LABS: Actual Bicarbonate (HCO3a) 24.6 mEq/L (22-28); Analyzer IN Cardio OR; Base Excess (BEa) -2.1 mEq/L (-2.0 to +3.0); CO2 Tension 48.9 mmHg (35.0-45.0); Calcium, Ionized 1.13 mmol/L (1.12-1.30); Hemoglobin (Hb) 15.8 g/dL (14.0-18.0); O2 Tension (PaO2) 114.1 mmHg (> 80.0); Potassium - ABG Lab 3.96 mmol/L (3.70-5.30); pH, Arterial 7.32 (7.35-7.45)
[2018-09-11 14:30] LABS: Actual Bicarbonate (HCO3a) 26.6 mEq/L (22-28); Analyzer IN Cardio OR; CO2 Tension 51.3 mmHg (35.0-45.0); Calcium, Ionized 0.95 mmol/L (1.12-1.30); Hemoglobin (Hb) 12.6 g/dL (14.0-18.0); O2 Tension (PaO2) 414.1 mmHg (> 80.0); pH, Arterial 7.33 (7.35-7.45)
[2018-09-11 14:30] LABS: Actual Bicarbonate (HCO3a) 21.4 mEq/L (22-28); Analyzer IN Cardio OR; Base Excess (BEa) -3.6 mEq/L (-2.0 to +3.0); Calcium, Ionized 1.07 mmol/L (1.12-1.30); Carboxyhemoglobin (COHb) 0.3 gm% (0.0-3.0); O2 Tension (PaO2) 269.8 mmHg (> 80.0); Potassium - ABG Lab 3.99 mmol/L (3.70-5.30); pH, Arterial 7.36 (7.35-7.45)
[2018-09-11 14:30] LABS: Actual Bicarbonate (HCO3a) 21.4 mEq/L (22-28); Analyzer IN Cardio OR; Base Excess (BEa) -3.8 mEq/L (-2.0 to +3.0); CO2 Tension 39.5 mmHg (35.0-45.0); Calcium, Ionized 0.98 mmol/L (1.12-1.30); Carboxyhemoglobin (COHb) 0.3 gm% (0.0-3.0); Hemoglobin (Hb) 11.6 g/dL (14.0-18.0); O2 Tension (PaO2) 498.8 mmHg (> 80.0); Potassium - ABG Lab 4.51 mmol/L (3.70-5.30); pH, Arterial 7.35 (7.35-7.45)
[2018-09-11 14:31] LABS: Actual Bicarbonate (HCO3v) 23 mEq/L (22-28); Analyzer IN Cardio OR; Base Excess -2.7 mEq/L (-2.0 to +3.0); Calcium, Ionized 0.99 mmol/L (1.16-1.32); Chloride (ABG LAB) 105 mmol/L (98-106); Hemoglobin (Hb) 11.4 g/dL (13.1-17.2); Potassium - ABG Lab 4.62 mmol/L (3.70-5.30); Sodium 137.2 mmol/L (133-146); pH (venous) 7.33 (7.32-7.43)
[2018-09-11 14:32] LABS: Actual Bicarbonate (HCO3a) 25.3 mEq/L (22-28); Analyzer IN Cardio OR; Base Excess (BEa) -0.2 mEq/L (-2.0 to +3.0); Calcium, Ionized 0.98 mmol/L (1.12-1.30); Carboxyhemoglobin (COHb) 0.3 gm% (0.0-3.0); Hemoglobin (Hb) 12.2 g/dL (14.0-18.0); O2 Tension (PaO2) 316.3 mmHg (> 80.0); Potassium - ABG Lab 5.06 mmol/L (3.70-5.30); pH, Arterial 7.37 (7.35-7.45)
[2018-09-11 14:33] LABS: Actual Bicarbonate (HCO3a) 22.3 mEq/L (22-28); Analyzer IN Cardio OR; Base Excess (BEa) -2.6 mEq/L (-2.0 to +3.0); CO2 Tension 39.2 mmHg (35.0-45.0); Calcium, Ionized 1.06 mmol/L (1.12-1.30); Carboxyhemoglobin (COHb) 0.5 gm% (0.0-3.0); Hemoglobin (Hb) 11.7 g/dL (14.0-18.0); O2 Tension (PaO2) 100.4 mmHg (> 80.0); pH, Arterial 7.37 (7.35-7.45)
[2018-09-11 14:41] LABS: Puncture Site ALINE
[2018-09-11 14:42] LABS: Puncture Site ALINE
[2018-09-11 14:42] LABS: Puncture Site ALINE
[2018-09-11 14:46] LABS: Puncture Site ALINE
[2018-09-11 14:47] LABS: Puncture Site ALINE
[2018-09-11 14:48] LABS: Puncture Site ALINE
[2018-09-11] MEDS: Ondansetron PF 4 MG/2 ML Vial IVP PRN ×2 (15:09→20:45)
[2018-09-11] MEDS: Insulin Regular 300 UNITS/3 ML VIAL SC PRN ×2 (16:01→16:57)
[2018-09-11 18:09] LABS: Hemoglobin 13.9 g/dL (14.0-18.0)
--- NOTE | 2018-09-11 18:16 | PDOC.CTH ---
Cardiology Progress Note - Subjective He underwent CABG earlier today. He is now extubated. Only Complaint is soreness. - Objective Vital Signs Temp Pulse Resp Pulse Ox 09/11/18 16:00 98.2 F 99 09/11/18 13:20 78 20 94 L 09/11/18 12:32 73 09/11/18 12:00 97.9 F 09/11/18 11:45 97.9 F 98 09/11/18 11:39 77 Weight 280 lb 8 oz 09/10/18 09/11/18 09/12/18 06:59 06:59 06:59 Intake Total 2100 1760 Output Total 400 690 Balance 2100 1360 -690 - Physical Examination General/Neuro: alert & oriented x3, NAD Neck: no JVD present Lungs: unlabored respirations Heart: RRR Abdomen: NT/ND Extremities: + edema B (1) - Telemetry Telemetry Rhythm: NSR - Labs Result Diagrams: 09/11/18 17:35 09/11/18 12:01 Troponin/CKMB CK-MB (CK-2) 8.7 ng/mL (0-6.6) H* 09/07/18 05:31 Troponin I 6.325 ng/mL (< 0.028) H* 09/07/18 14:29 - Assessment/Plan 1. NSTEMI 2. Multivessel CAD. 3. HTN 4. Tobacco use 5. T2DM. 6. S/P CABG PLAN: - Post op care. - ASA/Statin for life - Restart BB and ACEI once BP allows. - PT once tolerated.
[2018-09-11 18:34] LABS: Potassium 3.9 mmol/L (3.5-5.1)
[2018-09-11] MEDS: Potassium Chloride 20 MEQ/100 ML PREMIX BAG IVPB PRN (18:47)
[2018-09-11] MEDS: HYDROcodone/Acetaminophen 5/325 mg Tablet PO PRN (20:38)
[2018-09-11] MEDS: Atorvastatin Calcium 10 MG TAB PO SCH (21:24)
[2018-09-11] MEDS: Famotidine/PF 20 mg/2ml Vial SLOW IVP SCH (21:24)
[2018-09-12] MEDS: HYDROcodone/Acetaminophen 5/325 mg Tablet PO PRN ×5 (02:19→18:36)
[2018-09-12 04:11] LABS: #Lymphocytes 1.4 thou/uL (1.20-3.40); #Monocytes 1.1 thou/uL (0.11-0.59); #Neutrophils 9.9 thou/uL (1.40-6.50); %Eosinophils 0.1 % (0.0-10.0); %Monocytes 8.7 % (0.0-10.0); %Neutrophils 80.1 % (42.0-75.0); Mean Corpuscular HGB CONC 34.1 g/dL (32.0-36.0); Mean Corpuscular Hemoglobin 32.1 pg (27.0-31.0); Mean Corpuscular Volume 94.1 fL (78.0-98.0); Platelet Count 180 thou/uL (130-400); RBC Distribution Width 11.2 % (11.5-14.5); Red Blood Cell (RBC) Count 4.04 mill/uL (4.70-6.10); White Blood Cell (WBC) Count 12.4 thou/uL (4.8-10.8)
[2018-09-12 04:31] LABS: Anion Gap 11 mmol/L (10-20); BUN (Urea Nitrogen) 16 mg/dL (8.4-25.7); Calc. Creatinine Clearance 151 mL/min (70-130); Calcium 7.9 mg/dL (7.8-10.44); Carbon Dioxide 25 mmol/L (23-31); Chloride 106 mmol/L (98-107); Estimated GFR-MDRD 84; Glucose 137 mg/dL (80-115); Potassium 3.9 mmol/L (3.5-5.1); Sodium 138 mmol/L (136-145)
[2018-09-12] MEDS: Ketorolac Tromethamine 30 MG/ML VIAL IVP SCH ×3 (05:30→18:23)
[2018-09-12 06:30] VITALS: BMI 38.2
[2018-09-12] MEDS: Potassium Chloride 20 MEQ/100 ML PREMIX BAG IVPB PRN (06:45)
[2018-09-12] MEDS: CEFAZOLIN 2 GM in Premix Bag 1 BAG IVPB SCH (06:45)
--- NOTE | 2018-09-12 07:45 | RAD ---
EXAM: CHEST ONE VIEW HISTORY: Post open heart surgery. COMPARISON: 09/11/2018 FINDINGS: Endotracheal tube has been removed. The right subclavian central venous catheter, mediastinal drain, and right-sided thoracostomy tubes are again noted in place. Postsurgical changes related to CABG are again seen. There is accentuation of the cardiac silhouette and bronchovascular markings due to a shallow depth o f inspiration. Subsegmental atelectasis is present at each lung base. No pneumothorax or pleural effusion is appreciated. No other interval change. IMPRESSION: 1. Postsurgical changes related to CABG with subsegmental atelectasis at each lung base. 2. Interval removal of the endotracheal tube.
[2018-09-12] MEDS: Famotidine/PF 20 mg/2ml Vial SLOW IVP SCH ×2 (08:32→21:42)
[2018-09-12] MEDS: Insulin Regular 300 UNITS/3 ML VIAL SC PRN ×3 (08:35→16:11)
[2018-09-12] MEDS ORDERED: Aspirin 325 MG TAB PO SCH (09:00)
[2018-09-12] MEDS ORDERED: guaiFENesin/Codeine Phosphate 200 mg/20 mg 10 ml UD Cup PO PRN (10:38)
--- NOTE | 2018-09-12 10:38 | OP ---
DATE OF PROCEDURE: 09/11/2018 PREOPERATIVE DIAGNOSIS: Coronary artery disease. PROCEDURE PERFORMED: Coronary artery bypass graft x5 radial artery as a sequential graft to the diagonal 2, 1.5 mm in the diagonal 1, 1.25 mm saphenous vein good quality to a 2 mm OM1, a 1.5 mm right acute marginal and a very thick-walled 1.5 mm left PDA. [employer]OM[employer] G[employer]MENT FITTER: Jesus Ferrer MD DESCRIPTION OF PROCEDURE: After adequate anesthesia had been obtained, the patient was prepped and draped and I harvested the left radial artery while Dr. Ferrer did an endovascular vein harvest of the left greater saphenous vein, which was a nice vessel. Following closure of the arm, median sternotomy was performed. Entering the right pleura, the pericardium was opened. Traction sutures were placed, following which the ACT level was checked and adequate for cardiopulmonary bypass. Aorta and right atrium were cannulated. Cardiopulmonary bypass begun. Vessels were inspected for grafting. Cross-clamp was applied. A liter of cold blood cardioplegia was given, and then 5 distal anastomosis were completed with the vein graft end-to-side anastomosis to the OM, the PDA, and the acute marginal and the radial artery [id number] to the diagonal 1 and end-to-side to the diagonal 2. Following completion of this, the cross-clamp was removed and the partial occluding clamp placed, and three proximal anastomosis performed on the aortic root with the vein grafts. These were marked with rings. Following removal of the cross clamp, the radial artery was anastomosed to the side of the OM vein graft about a centimeter from the aortic root. Following completion of this, distal anastomosis were hemostatic. The patient was weaned from cardiopulmonary bypass. Cannulas were removed. Protamine given systemically, and the aortic cannulation site secured with an additional 4-0 Prolene suture. Mediastinal and right pleural drains were placed and after obtaining good hemostasis, the sternum was reapproximated with #7 interrupted wire using vancomycin paste on the sternal edges, platelet-rich blood and platelet-poor plasma. Subcutaneous tissue and skin were closed in layers, and the patient is to be taken to the ICU in guarded condition. Job ID: [id number]
--- NOTE | 2018-09-12 10:38 | PDOC.PN ---
- Subjective Encounter Start Date: 09/12/18 Encounter Start Time: 10:37 - Objective Vital Signs & Weight: Vital Signs (12 hours) Temp Pulse Ox 09/12/18 08:00 98.5 F 99 09/12/18 04:00 98.3 F 09/12/18 00:00 97.8 F Weight Weight 282 lb 3.067 oz Most Recent Monitor Data Heart Rate from ECG 86 NIBP 122/76 NIBP BP-Mean 91 Respiration from ECG 22 SpO2 95 I&O: 09/11/18 09/12/18 09/13/18 06:59 06:59 06:59 Intake Total 1760 2013.4 480 Output Total 400 1875 275 Balance 1360 138.4 205 Result Diagrams: 09/12/18 03:55 09/12/18 03:55 Additional Labs: Accuchecks 09/12/18 09/12/18 09/11/18 03:57 00:17 16:56 POC Glucose 131 H 119 H 149 H 09/11/18 09/11/18 09/10/18 16:02 12:17 20:29 POC Glucose 166 H 145 H 128 H Dx/Plan (1) NSTEMI (non-ST elevated myocardial infarction) Code(s): I21.4 - NON-ST ELEVATION (NSTEMI) MYOCARDIAL INFARCTION Status: Acute Comment: on ASA.statin,BB and JOHN-I (2) CAD (coronary artery disease) Code(s): I25.10 - ATHSCL HEART DISEASE OF [place] CORONARY ARTERY W/O ANG PCTRS Status: Acute Comment: Per Cath this admission.Multivessel disease. S/P CABG 09/11/18. cont ASA,statin,BB,john-i (3) HLD (hyperlipidemia) Code(s): E78.5 - HYPERLIPIDEMIA, UNSPECIFIED Status: Acute (4) Hypertension Code(s): I10 - ESSENTIAL (PRIMARY) HYPERTENSION Status: Acute (5) Chest pain Code(s): R07.9 - CHEST PAIN, UNSPECIFIED Status: Resolved Comment: d/t #1 - Plan * .
--- NOTE | 2018-09-12 12:19 | PDOC.PN ---
- Subjective Encounter Start Date: 09/12/18 Encounter Start Time: 12:16 Subjective: s/p CABG and has been having bouts of cough w resultant pain in incision -: no SOB/fever - Objective MAR Reviewed: Yes Vital Signs & Weight: Vital Signs (12 hours) Temp Pulse Ox 09/12/18 08:00 98.5 F 99 09/12/18 04:00 98.3 F Weight Weight 282 lb 3.067 oz Most Recent Monitor Data Heart Rate from ECG 87 NIBP 106/70 NIBP BP-Mean 82 Respiration from ECG 20 SpO2 92 I&O: 09/11/18 09/12/18 09/13/18 06:59 06:59 06:59 Intake Total 1760 2013.4 480 Output Total 400 1875 315 Balance 1360 138.4 165 Result Diagrams: 09/12/18 03:55 09/12/18 03:55 Additional Labs: Accuchecks 09/12/18 09/12/18 09/12/18 11:14 03:57 00:17 POC Glucose 147 H 131 H 119 H 09/11/18 09/11/18 09/11/18 16:56 16:02 12:17 POC Glucose 149 H 166 H 145 H Phys Exam - Physical Examination Constitutional: NAD intermittent coughing HEENT: PERRLA, moist MMs, sclera anicteric, oral pharynx no lesions Neck: no nodes, no JVD, supple, full ROM Respiratory: no wheezing, no rales, no rhonchi, clear to auscultation bilateral Cardiovascular: RRR, no significant murmur Gastrointestinal: soft, non-tender, no distention, positive bowel sounds Musculoskeletal: no edema, pulses present Neurological: non-focal, normal sensation, moves all 4 limbs Psychiatric: normal affect, A&O x 3 Skin: no rash, normal turgor, cap refill <2 seconds Dx/Plan (1) NSTEMI (non-ST elevated myocardial infarction) Code(s): I21.4 - NON-ST ELEVATION (NSTEMI) MYOCARDIAL INFARCTION Status: Acute Comment: on ASA.statin,BB and JOHN-I (2) CAD (coronary artery disease) Code(s): I25.10 - ATHSCL HEART DISEASE OF [place] CORONARY ARTERY W/O ANG PCTRS Status: Acute Comment: Per Cath this admission.Multivessel disease. S/P CABG 09/11/18. cont ASA,statin,BB,john-i (3) HLD (hyperlipidemia) Code(s): E78.5 - HYPERLIPIDEMIA, UNSPECIFIED Status: Acute (4) Hypertension Code(s): I10 - ESSENTIAL (PRIMARY) HYPERTENSION Status: Acute (5) Chest pain Code(s): R07.9 - CHEST PAIN, UNSPECIFIED Status: Resolved Comment: d/t #1 - Plan plan discussed w/ family, respiratory therapy, incentive spirometry, DVT proph w /SCDs add Guaifensin w codeine ,add mucinex -: cont cardioprudent meds as above -: Extubated yesterday and doing well. -: Post-op care.HD stable -: am labs * . Review of Systems - Review of Systems Constitutional: negative: fever, chills, sweats, weakness, malaise, other ENT: negative: Ear Pain, Ear Discharge, Nose Pain, Nose Discharge, Nose Congestion, Mouth Pain, Mouth Swelling, Throat Pain, Throat Swelling, Other Respiratory: Cough, Sputum Cardiovascular: negative: chest pain, palpitations, orthopnea, paroxysmal nocturnal dyspnea, edema, light headedness, other Gastrointestinal: negative: Nausea, Vomiting, Abdominal Pain, Diarrhea, Constipation, Melena, Hematochezia, Other Genitourinary: negative: Dysuria, Frequency, Incontinence, Hematuria, Retention , Other Musculoskeletal: negative: Neck Pain, Shoulder Pain, Arm Pain, Back Pain, Hand Pain, Leg Pain, Foot Pain, Other Neurological: negative: Weakness, Numbness, Incoordination, Change in Speech, Confusion, Seizures, Other - Medications/Allergies Allergies/Adverse Reactions: Allergies Allergy/AdvReac Type Severity Reaction Status Date / Time No Known Allergies Allergy Verified 09/07/18 08:02 Medications: Current Medications Acetaminophen (Tylenol) 650 mg PO Q6H PRN PRN Reason: Headache/Fever Or Mild Pain Hydrocodone Bitart/Acetaminophen ([place] 5/325) 1 tab PO Q4H PRN PRN Reason: Moderate Pain (4-6) Hydrocodone Bitart/Acetaminophen ([place] 5/325) 2 tab PO Q4H PRN PRN Reason: Severe Pain (7-10) Last Admin: 09/12/18 10:19 Dose: 2 tab Al Hydroxide/Mg Hydroxide (Maalox) 30 ml PO Q4H PRN PRN Reason: Indigestion Albuterol/Ipratropium (Duoneb) 3 ml NEB [id number] PRN PRN Reason: SHORTNESS OF BREATH Aspirin (Aspirin) 325 mg PO DAILY [facility] Last Admin: 09/12/18 08:32 Dose: 325 mg Atorvastatin Calcium (Lipitor) 10 mg PO QPM [facility] Last Admin: 09/11/18 21:24 Dose: 10 mg Bisacodyl (Dulcolax) 10 mg PO Q12H PRN PRN Reason: Constipation Bisacodyl (Dulcolax) 10 mg [place] Q12H PRN PRN Reason: Constipation Dextrose/Water (Dextrose 50%) 25 gm SLOW IVP PRN PRN PRN Reason: PER HYPOGLYCEMIC PROTOCOL Famotidine (Pepcid) 20 mg SLOW IVP Q12HR [facility] Last Admin: 09/12/18 08:32 Dose: 20 mg Fentanyl (Sublimaze) 25 mcg SLOW IVP Q2H PRN PRN Reason: Moderate Pain (4-6) Stop: 09/13/18 11:34 Last Admin: 09/11/18 15:50 Dose: 25 mcg Fentanyl (Sublimaze) 50 mcg SLOW IVP Q2H PRN PRN Reason: Severe Pain (7-10) Stop: 09/13/18 11:34 Glucagon (Glucagon) 1 mg SC PRN PRN PRN Reason: PER HYPOGLYCEMIC PROTOCOL Guaifenesin (Mucinex) 1,200 mg PO Q12HR [facility] Guaifenesin/Codeine Phosphate (Robitussin Ac) 10 ml PO Q6H PRN PRN Reason: Cough Guaifenesin/Dextromethorphan (Robitussin Dm) 15 ml PO Q4H PRN PRN Reason: Cough Hydralazine HCl (Apresoline) 10 mg SLOW IVP Q6H PRN PRN Reason: To Maintain SBP< 140mmHG Dopamine HCl/Dextrose (Dopamine 400 Mg/D5w 250 Ml) 250 mls @ 0 mls/hr IVPB PRN PRN; Protocol PRN Reason: To maintain SBP > 90 mmHG Norepinephrine Bitartrate (Levophed) 250 mls @ 0 mls/hr IVPB PRN PRN; Protocol PRN Reason: To maintain SBP > 90 mmHG Nicardipine HCl 25 mg/ Sodium (Chloride) 260 mls @ 0 mls/hr IVPB INF PRN; Protocol PRN Reason: To Maintain SBP< 140mmHG Nitroglycerin/Dextrose (Nitroglycerin 50 Mg/250 Ml Bot) 250 mls @ 0 mls/hr IVPB PRN PRN; Protocol PRN Reason: To Maintain SBP< 140mmHG Insulin Human Regular 100 (units/ Sodium Chloride) 101 mls @ 0 mls/hr IVPB INF SHAJI; Protocol Dextrose/Water (D5w) 1,000 mls @ 0 mls/hr IV INF PRN PRN Reason: PRN HYPOGLYCEMIC PROTOCOL Insulin Human Regular (Humulin R) 0 units SC Q4H PRN; Protocol PRN Reason: POST OP SLIDING SCALE Last Admin: 09/12/18 11:12 Dose: 3 unit Ketorolac Tromethamine (Toradol) 15 mg IVP Q6HR [facility] Stop: 09/14/18 12:01 Last Admin: 09/12/18 11:07 Dose: 15 mg Morphine Sulfate (Morphine) 2 mg SLOW IVP Q15MIN PRN PRN Reason: Severe Pain (7-10) Ondansetron HCl (Zofran) 4 mg IVP Q6H PRN PRN Reason: Nausea/Vomiting Last Admin: 09/11/18 20:45 Dose: 4 mg Potassium Chloride (Kcl) 20 meq IVPB PRN PRN PRN Reason: K level </= 4.0 Last Admin: 09/12/18 06:45 Dose: 20 meq Promethazine HCl (Phenergan) 6.25 mg IM Q4H PRN PRN Reason: Nausea/Vomiting
--- NOTE | 2018-09-12 17:12 | PDOC.CTH ---
Cardiology Progress Note - Subjective Doing well. Only complaint is sore chest, worse with coughing. Elliott is passing gas , no BM yet. - Objective Vital Signs Temp Pulse Ox 09/12/18 12:00 98.8 F 09/12/18 08:00 98.5 F 99 Weight 282 lb 3.067 oz 09/11/18 09/12/18 09/13/18 06:59 06:59 06:59 Intake Total 1760 2013.4 960 Output Total 400 1875 585 Balance 1360 138.4 375 - Physical Examination General/Neuro: alert & oriented x3, NAD Neck: no JVD present Lungs: CTA, unlabored respirations Heart: RRR Abdomen: NT/ND Extremities: + edema B (1+) - Telemetry Telemetry Rhythm: NSR - Labs Result Diagrams: 09/12/18 03:55 09/12/18 03:55 Troponin/CKMB CK-MB (CK-2) 8.7 ng/mL (0-6.6) H* 09/07/18 05:31 Troponin I 6.325 ng/mL (< 0.028) H* 09/07/18 14:29 - Assessment/Plan 1. NSTEMI 2. Multivessel CAD. 3. HTN 4. Tobacco use 5. T2DM. 6. S/P CABG PLAN: - ASA/Statin for life - Restart BB and ACEI once BP allows. - Will start Lasix tomorrow. - PT once tolerated.
[2018-09-12] MEDS ORDERED: guaiFENesin ER 600 MG TAB PO SCH (21:00)
[2018-09-12] MEDS: Atorvastatin Calcium 10 MG TAB PO SCH (21:41)
[2018-09-13] MEDS: Ketorolac Tromethamine 30 MG/ML VIAL IVP SCH ×2 (00:54→05:18)
[2018-09-13] MEDS: HYDROcodone/Acetaminophen 5/325 mg Tablet PO PRN ×4 (01:06→19:47)
[2018-09-13 04:35] LABS: #Eosinphils 0.1 thou/uL (0.0-0.7); #Lymphocytes 2.2 thou/uL (1.20-3.40); #Neutrophils 8.3 thou/uL (1.40-6.50); %Basophils 0.2 % (0.0-1.0); %Lymphocytes 18.7 % (21.0-51.0); %Monocytes 8.8 % (0.0-10.0); %Neutrophils 71.3 % (42.0-75.0); Hemoglobin 11.9 g/dL (14.0-18.0); Mean Corpuscular HGB CONC 34.3 g/dL (32.0-36.0); Mean Corpuscular Hemoglobin 32.3 pg (27.0-31.0); Mean Corpuscular Volume 94.4 fL (78.0-98.0); Platelet Count 154 thou/uL (130-400); RBC Distribution Width 11.1 % (11.5-14.5); Red Blood Cell (RBC) Count 3.68 mill/uL (4.70-6.10); White Blood Cell (WBC) Count 11.6 thou/uL (4.8-10.8)
[2018-09-13 04:52] LABS: Anion Gap 10 mmol/L (10-20); BUN (Urea Nitrogen) 15 mg/dL (8.4-25.7); Calc. Creatinine Clearance 152 mL/min (70-130); Calcium 8.6 mg/dL (7.8-10.44); Carbon Dioxide 26 mmol/L (23-31); Chloride 104 mmol/L (98-107); Estimated GFR-MDRD 84; Glucose 118 mg/dL (80-115); Potassium 3.9 mmol/L (3.5-5.1); Sodium 136 mmol/L (136-145)
[2018-09-13] MEDS ORDERED: Guaifenesin DM 100-10/5 ML UDCUP PO PRN (06:57)
[2018-09-13] MEDS ORDERED: HYDROcodone/Acetaminophen 5/325 mg Tablet PO PRN (06:57)
[2018-09-13] MEDS ORDERED: Zolpidem Tartrate 5 MG TAB PO PRN (06:57)
[2018-09-13] MEDS ORDERED: Mag-Al 1200 mg/1200 mg/30 ML UDCUP PO PRN (06:57)
[2018-09-13] MEDS ORDERED: Bisacodyl 10 MG SUPP PR PRN (06:57)
[2018-09-13] MEDS ORDERED: Nitroglycerin 0.4 MG TAB (25 Tab Bottle) SL PRN (06:57)
[2018-09-13] MEDS ORDERED: Bisacodyl 5 MG TAB PO PRN (06:57)
[2018-09-13] MEDS ORDERED: Acetaminophen 325 MG TAB PO PRN (06:57)
[2018-09-13] MEDS ORDERED: Mineral Oil ENEMA PR PRN (06:57)
[2018-09-13] MEDS ORDERED: Fentanyl 100 MCG/2 ML VIAL SLOW IVP PRN (06:57)
[2018-09-13] MEDS ORDERED: ALPRAZolam 0.25 MG TAB PO PRN (06:57)
[2018-09-13] MEDS ORDERED: Dextrose 50% Abboject 50 ML SYRINGE SLOW IVP PRN (07:14)
[2018-09-13] MEDS ORDERED: Dextrose 5% in Water 1,000 ML IV PRN (07:14)
[2018-09-13] MEDS ORDERED: Insulin Regular 300 UNITS/3 ML VIAL SC PRN (07:14)
--- NOTE | 2018-09-13 07:28 | RAD ---
Exam: Chest one view: HISTORY: Follow-up postop open heart COMPARISON: 09/12/2018 FINDINGS: Postop midline sternotomy. Right central line. Stable pleural and parenchymal changes in the infrahil ar regions. IMPRESSION: Stable postop pleural and parenchymal changes. Continued short-term follow-up.
[2018-09-13] MEDS ORDERED: Furosemide 40 MG TAB PO SCH (07:30)
[2018-09-13] MEDS: metFORMIN 500 MG TAB PO SCH ×2 (08:34→17:08)
[2018-09-13] MEDS: Furosemide 40 MG TAB PO SCH (08:34)
[2018-09-13] MEDS: Famotidine 20 MG TAB PO SCH ×2 (08:34→19:48)
[2018-09-13] MEDS: Aspirin 325 mg Enteric Coated Tablet PO SCH (08:35)
[2018-09-13] MEDS: Potassium Chloride 10 MEQ TAB PO SCH (08:36)
[2018-09-13] MEDS: Polyethylene Glycol 3350 17 GM Packet PO SCH (08:39)
--- NOTE | 2018-09-13 14:18 | PDOC.PN ---
- Subjective Encounter Start Date: 09/13/18 Encounter Start Time: 14:17 Subjective: pt seen during walk w PT.care discussed w -: no more cough and resultant pain.he coughed up a big blob & feels good now -: no SOB/CP during ambulation - Objective MAR Reviewed: Yes Vital Signs & Weight: Vital Signs (12 hours) Temp Pulse Pulse BP BP Pulse Ox Pulse Ox 09/13/18 12:00 98.2 F 09/13/18 09:56 82 84 122/78 145/95 H 100 09/13/18 07:45 98 09/13/18 07:00 98.1 F 09/13/18 04:00 98.4 F Pulse Ox 09/13/18 12:00 09/13/18 09:56 96 09/13/18 07:45 09/13/18 07:00 09/13/18 04:00 Weight Weight 281 lb 15.539 oz Most Recent Monitor Data Heart Rate from ECG 85 NIBP 122/70 NIBP BP-Mean 87 Respiration from ECG 24 SpO2 95 I&O: 09/12/18 09/13/18 09/14/18 06:59 06:59 06:59 Intake Total 2013.4 1400 980 Output Total 1875 1370 200 Balance 138.4 30 780 Result Diagrams: 09/13/18 04:19 09/13/18 04:19 Additional Labs: Accuchecks 09/13/18 09/12/18 09/12/18 11:27 21:42 16:12 POC Glucose 116 H 118 H 132 H 09/11/18 09/11/18 09/11/18 20:08 10:47 10:07 POC Glucose 127 H 144 H 146 H 09/11/18 09/11/18 09/11/18 09:39 09:25 09:03 POC Glucose 139 H 125 H 131 H 09/11/18 08:16 POC Glucose 126 H Phys Exam - Physical Examination Constitutional: NAD Musculoskeletal: no edema, pulses present Neurological: non-focal, normal sensation, moves all 4 limbs Psychiatric: normal affect, A&O x 3 Skin: no rash Dx/Plan (1) NSTEMI (non-ST elevated myocardial infarction) Code(s): I21.4 - NON-ST ELEVATION (NSTEMI) MYOCARDIAL INFARCTION Status: Acute Comment: on ASA.statin,BB and JOHN-I.S/P CABG (2) CAD (coronary artery disease) Code(s): I25.10 - ATHSCL HEART DISEASE OF [place] CORONARY ARTERY W/O ANG PCTRS Status: Acute Comment: Per Cath this admission.Multivessel disease. S/P CABG 09/11/18. cont ASA,statin,BB,john-i (3) HLD (hyperlipidemia) Code(s): E78.5 - HYPERLIPIDEMIA, UNSPECIFIED Status: Acute (4) Hypertension Code(s): I10 - ESSENTIAL (PRIMARY) HYPERTENSION Status: Acute (5) Chest pain Code(s): R07.9 - CHEST PAIN, UNSPECIFIED Status: Resolved Comment: d/t #1 - Plan plan discussed w/ family, PT/OT, respiratory therapy, incentive spirometry, out of bed/ambulate, DVT proph w/SCDs Clinically better.cont cardioprudent meds as above -: lasix added and has been having good diuresis -: am labs. -: blood sugar controlled. cont ISS,Metformin. -: BP lower side .start BB & JOHN-I when BP tolerates * . Review of Systems - Review of Systems Constitutional: negative: fever, chills, sweats, weakness, malaise, other Respiratory: negative: Cough, Dry, Shortness of Breath, Hemoptysis, SOB with Excertion, Pleuritic Pain, Sputum, Wheezing Cardiovascular: negative: chest pain, palpitations, orthopnea, paroxysmal nocturnal dyspnea, edema, light headedness, other Gastrointestinal: negative: Nausea, Vomiting, Abdominal Pain, Diarrhea, Constipation, Melena, Hematochezia, Other Genitourinary: negative: Dysuria, Frequency, Incontinence, Hematuria, Retention , Other Neurological: negative: Weakness, Numbness, Incoordination, Change in Speech, Confusion, Seizures, Other - Medications/Allergies Allergies/Adverse Reactions: Allergies Allergy/AdvReac Type Severity Reaction Status Date / Time No Known Allergies Allergy Verified 09/07/18 08:02 Medications: Current Medications Acetaminophen (Tylenol) 650 mg PO Q6H PRN PRN Reason: Headache/Fever or Mild Pain Hydrocodone Bitart/Acetaminophen ([place] 5/325) 1 tab PO Q4H PRN PRN Reason: Moderate Pain (4-6) Last Admin: 09/13/18 13:50 Dose: 1 tab Hydrocodone Bitart/Acetaminophen ([place] 5/325) 2 tab PO Q4H PRN PRN Reason: Severe Pain (7-10) Last Admin: 09/13/18 08:35 Dose: 2 tab Al Hydroxide/Mg Hydroxide (Maalox) 30 ml PO Q4H PRN PRN Reason: Indigestion Alprazolam (Xanax) 0.25 mg PO TIDPRN PRN PRN Reason: Anxiety Aspirin (Ecotrin) 325 mg PO DAILY [facility] Last Admin: 09/13/18 08:35 Dose: 325 mg Atorvastatin Calcium (Lipitor) 10 mg PO QPM [facility] Last Admin: 09/12/18 21:41 Dose: 10 mg Bisacodyl (Dulcolax) 10 mg PO Q12H PRN PRN Reason: Constipation Bisacodyl (Dulcolax) 10 mg SC Q12H PRN PRN Reason: Constipation Dextrose/Water (Dextrose 50%) 25 gm SLOW IVP PRN PRN PRN Reason: PER HYPOGLYCEMIC PROTOCOL Famotidine (Pepcid) 20 mg PO BID [facility] Last Admin: 09/13/18 08:34 Dose: 20 mg Fentanyl (Sublimaze) 25 mcg SLOW IVP Q2H PRN PRN Reason: Moderate breakthrough pain Furosemide (Lasix) 40 mg PO DAILY [facility] Last Admin: 09/13/18 08:34 Dose: 40 mg Glucagon (Glucagon) 1 mg SC PRN PRN PRN Reason: PER HYPOGLYCEMIC PROTOCOL Guaifenesin/Dextromethorphan (Robitussin Dm) 15 ml PO Q4H PRN PRN Reason: Cough Dextrose/Water (D5w) 1,000 mls @ 0 mls/hr IV INF PRN PRN Reason: PRN HYPOGLYCEMIC PROTOCOL Insulin Human Regular (Humulin R) 0 units SC Q4H PRN; Protocol PRN Reason: POST OP SLIDING SCALE Metformin HCl (Glucophage) 1,000 mg PO BID-[facility] Last Admin: 09/13/18 08:34 Dose: 1,000 mg Mineral Oil (Fleet Mineral Oil) 133 ml [place] DAILYPRN PRN PRN Reason: Constipation Nitroglycerin (Nitrostat) 0.4 mg SL Q5MIN PRN PRN Reason: Chest Pain Polyethylene Glycol (Miralax) 17 gm PO DAILY [facility] Last Admin: 09/13/18 08:39 Dose: 17 gm Potassium Chloride (Klor-Con 10) 10 meq PO QAM-WM [facility] Last Admin: 09/13/18 08:36 Dose: 10 meq Zolpidem Tartrate (Ambien) 5 mg PO HSPRN PRN PRN Reason: Insomnia
--- NOTE | 2018-09-13 17:59 | PDOC.CTH ---
Cardiology Progress Note - Subjective No new issues. Had a BM today. Walking with PT without issues. Only issue is he has a "hard cough" and it is very painful when he coughs. - Objective Vital Signs Temp Pulse Pulse Pulse Resp BP BP 09/13/18 16:00 98.7 F 79 18 09/13/18 12:00 98.2 F 09/13/18 09:56 82 84 122/78 145/95 H 09/13/18 07:45 09/13/18 07:00 98.1 F BP Pulse Ox Pulse Ox Pulse Ox 09/13/18 16:00 136/79 98 09/13/18 12:00 09/13/18 09:56 100 96 09/13/18 07:45 98 09/13/18 07:00 Weight 281 lb 15.539 oz 09/12/18 09/13/18 09/14/18 06:59 06:59 06:59 Intake Total 2013.4 1400 980 Output Total 1875 1370 200 Balance 138.4 30 780 - Physical Examination General/Neuro: alert & oriented x3, NAD Neck: no JVD present Lungs: CTA, unlabored respirations Heart: RRR Abdomen: NT/ND Extremities: + edema B (trace) - Telemetry Telemetry Rhythm: NSR - Labs Result Diagrams: 09/13/18 04:19 09/13/18 04:19 Troponin/CKMB CK-MB (CK-2) 8.7 ng/mL (0-6.6) H* 09/07/18 05:31 Troponin I 6.325 ng/mL (< 0.028) H* 09/07/18 14:29 - Assessment/Plan 1. NSTEMI 2. Multivessel CAD. 3. HTN 4. Tobacco use 5. T2DM. 6. S/P CABG PLAN: - ASA/Statin for life - Will start BB and ACEI. - Increase PT as tolerated.
[2018-09-13] MEDS: Atorvastatin Calcium 10 MG TAB PO SCH (19:48)
[2018-09-14] MEDS: HYDROcodone/Acetaminophen 5/325 mg Tablet PO PRN ×4 (03:22→19:44)
--- NOTE | 2018-09-14 07:41 | PRG ---
DATE OF SERVICE: 09/14/2018 SUBJECTIVE: Mr. Toscano really feels very well. He is up in the room, sitting in the chair, feels quite well. No complaints. No chest pain or shortness of breath. OBJECTIVE: VITAL SIGNS: His blood pressure is somewhat high at 146/76, pulse 80, it is regular. LUNGS: Clear. CARDIAC: Normal S1, normal S2. ABDOMEN: Soft and nontender. EXTREMITIES: No edema. ASSESSMENT: 1. Status post non-ST elevation myocardial infarction. 2. Status post bypass surgery. 3. Hypertension. 4. Cough is improved. PLAN: 1. Increase carvedilol. 2. Continue atorvastatin with increased dose. 3. Continue lisinopril. 4. Continue metformin. The patient is doing quite well. Suspect he will be able to be released home fairly soon possibly tomorrow if he continues to improve so well. 5. We will also begin amlodipine tomorrow if blood pressure is elevated. He is on 10 mg a day at home. Job ID: [id number]
[2018-09-14] MEDS ORDERED: Carvedilol 3.125 MG TAB PO SCH ×2 (08:00)
--- NOTE | 2018-09-14 08:15 | PDOC.PN ---
- Subjective Encounter Start Date: 09/14/18 Encounter Start Time: 08:15 - Objective Vital Signs & Weight: Vital Signs (12 hours) Temp Pulse Resp BP Pulse Ox 09/14/18 03:54 97.9 F 81 16 146/76 H 94 L Weight Weight 281 lb 9.6 oz Most Recent Monitor Data Heart Rate from ECG 85 NIBP 122/70 NIBP BP-Mean 87 Respiration from ECG 24 SpO2 95 I&O: 09/13/18 09/14/18 09/15/18 06:59 06:59 06:59 Intake Total 1400 2390 Output Total 1370 650 Balance 30 1740 Result Diagrams: 09/13/18 04:19 09/13/18 04:19 Additional Labs: Accuchecks 09/14/18 09/13/18 09/13/18 05:36 20:29 17:49 POC Glucose 131 H 140 H 112 H 09/13/18 11:27 POC Glucose 116 H Dx/Plan (1) NSTEMI (non-ST elevated myocardial infarction) Code(s): I21.4 - NON-ST ELEVATION (NSTEMI) MYOCARDIAL INFARCTION Status: Acute Comment: on ASA.statin,BB and JOHN-I.S/P CABG (2) CAD (coronary artery disease) Code(s): I25.10 - ATHSCL HEART DISEASE OF [place] CORONARY ARTERY W/O ANG PCTRS Status: Acute Comment: Per Cath this admission.Multivessel disease. S/P CABG 09/11/18. cont ASA,statin,BB,john-i (3) HLD (hyperlipidemia) Code(s): E78.5 - HYPERLIPIDEMIA, UNSPECIFIED Status: Acute (4) Hypertension Code(s): I10 - ESSENTIAL (PRIMARY) HYPERTENSION Status: Acute (5) Chest pain Code(s): R07.9 - CHEST PAIN, UNSPECIFIED Status: Resolved Comment: d/t #1 - Plan * . Review of Systems - Medications/Allergies Allergies/Adverse Reactions: Allergies Allergy/AdvReac Type Severity Reaction Status Date / Time No Known Allergies Allergy Verified 09/07/18 08:02 Medications: Current Medications Acetaminophen (Tylenol) 650 mg PO Q6H PRN PRN Reason: Headache/Fever or Mild Pain Hydrocodone Bitart/Acetaminophen ([place] 5/325) 1 tab PO Q4H PRN PRN Reason: Moderate Pain (4-6) Last Admin: 05/23/19 13:50 Dose: 1 tab Hydrocodone Bitart/Acetaminophen ([place] 5/325) 2 tab PO Q4H PRN PRN Reason: Severe Pain (7-10) Last Admin: 09/14/18 03:22 Dose: 2 tab Al Hydroxide/Mg Hydroxide (Maalox) 30 ml PO Q4H PRN PRN Reason: Indigestion Alprazolam (Xanax) 0.25 mg PO TIDPRN PRN PRN Reason: Anxiety Aspirin (Ecotrin) 325 mg PO DAILY [facility] Last Admin: 09/13/18 08:35 Dose: 325 mg Atorvastatin Calcium (Lipitor) 40 mg PO HS [facility] Bisacodyl (Dulcolax) 10 mg PO Q12H PRN PRN Reason: Constipation Bisacodyl (Dulcolax) 10 mg ID Q12H PRN PRN Reason: Constipation Carvedilol (Coreg) 6.25 mg PO BID-[facility] Dextrose/Water (Dextrose 50%) 25 gm SLOW IVP PRN PRN PRN Reason: PER HYPOGLYCEMIC PROTOCOL Famotidine (Pepcid) 20 mg PO BID [facility] Last Admin: 09/13/18 19:48 Dose: 20 mg Fentanyl (Sublimaze) 25 mcg SLOW IVP Q2H PRN PRN Reason: Moderate breakthrough pain Furosemide (Lasix) 40 mg PO DAILY [facility] Last Admin: 09/13/18 08:34 Dose: 40 mg Glucagon (Glucagon) 1 mg SC PRN PRN PRN Reason: PER HYPOGLYCEMIC PROTOCOL Guaifenesin/Dextromethorphan (Robitussin Dm) 15 ml PO Q4H PRN PRN Reason: Cough Dextrose/Water (D5w) 1,000 mls @ 0 mls/hr IV INF PRN PRN Reason: PRN HYPOGLYCEMIC PROTOCOL Insulin Human Regular (Humulin R) 0 units SC Q4H PRN; Protocol PRN Reason: POST OP SLIDING SCALE Lisinopril (Zestril) 2.5 mg PO DAILY [facility] Metformin HCl (Glucophage) 1,000 mg PO BID-[facility] Last Admin: 09/13/18 17:08 Dose: 1,000 mg Mineral Oil (Fleet Mineral Oil) 133 ml [place] DAILYPRN PRN PRN Reason: Constipation Nitroglycerin (Nitrostat) 0.4 mg SL Q5MIN PRN PRN Reason: Chest Pain Polyethylene Glycol (Miralax) 17 gm PO DAILY [facility] Last Admin: 09/13/18 08:39 Dose: 17 gm Potassium Chloride (Klor-Con 10) 10 meq PO QAM-WM [facility] Last Admin: 09/13/18 08:36 Dose: 10 meq Zolpidem Tartrate (Ambien) 5 mg PO HSPRN PRN PRN Reason: Insomnia
[2018-09-14] MEDS: Potassium Chloride 10 MEQ TAB PO SCH (08:29)
[2018-09-14] MEDS: metFORMIN 500 MG TAB PO SCH ×2 (08:29→16:16)
[2018-09-14] MEDS: Aspirin 325 mg Enteric Coated Tablet PO SCH (08:30)
[2018-09-14] MEDS: Carvedilol 6.25 MG TAB PO SCH ×2 (08:30→16:16)
[2018-09-14] MEDS: Furosemide 40 MG TAB PO SCH (08:30)
[2018-09-14] MEDS: Polyethylene Glycol 3350 17 GM Packet PO SCH (08:31)
[2018-09-14] MEDS: Lisinopril 2.5 MG TAB PO SCH (08:31)
[2018-09-14] MEDS: Famotidine 20 MG TAB PO SCH ×2 (08:39→19:44)
--- NOTE | 2018-09-14 12:43 | PDOC.PN ---
- Subjective Encounter Start Date: 09/14/18 Encounter Start Time: 12:41 Subjective: feels much better. no cough/SOB/CP -: ambulating without difficulty - Objective MAR Reviewed: Yes Vital Signs & Weight: Vital Signs (12 hours) Temp Pulse Pulse Pulse Resp BP BP 09/14/18 11:09 98 F 65 18 09/14/18 09:09 91 89 173/79 H 09/14/18 08:31 80 09/14/18 08:30 142/83 H 09/14/18 08:00 98.6 F 80 18 09/14/18 03:54 97.9 F 81 16 BP BP BP Pulse Ox 09/14/18 11:09 123/62 98 09/14/18 09:09 140/76 09/14/18 08:31 09/14/18 08:30 09/14/18 08:00 140/65 94 L 09/14/18 03:54 146/76 H 94 L Weight Weight 281 lb 9.6 oz Most Recent Monitor Data Heart Rate from ECG 85 NIBP 122/70 NIBP BP-Mean 87 Respiration from ECG 24 SpO2 95 I&O: 09/13/18 09/14/18 09/15/18 06:59 06:59 06:59 Intake Total 1400 2390 350 Output Total 1370 650 Balance 30 1740 350 Result Diagrams: 09/13/18 04:19 09/13/18 04:19 Additional Labs: Accuchecks 09/14/18 09/14/18 09/13/18 11:00 05:36 20:29 POC Glucose 130 H 131 H 140 H 09/13/18 17:49 POC Glucose 112 H Phys Exam - Physical Examination Constitutional: NAD HEENT: PERRLA, moist MMs, sclera anicteric, oral pharynx no lesions Neck: no nodes, no JVD, supple, full ROM Respiratory: no wheezing, no rales, no rhonchi, clear to auscultation bilateral Cardiovascular: RRR, no significant murmur, no rub surgical incision clean and no discharge Gastrointestinal: soft, non-tender, no distention, positive bowel sounds Musculoskeletal: no edema, pulses present Neurological: non-focal, normal sensation, moves all 4 limbs Psychiatric: normal affect, A&O x 3 Skin: no rash Dx/Plan (1) NSTEMI (non-ST elevated myocardial infarction) Code(s): I21.4 - NON-ST ELEVATION (NSTEMI) MYOCARDIAL INFARCTION Status: Acute Comment: on ASA.statin,BB and JOHN-I.S/P CABG (2) CAD (coronary artery disease) Code(s): I25.10 - ATHSCL HEART DISEASE OF [place] CORONARY ARTERY W/O ANG PCTRS Status: Acute Comment: Per Cath this admission.Multivessel disease. S/P CABG 09/11/18. cont ASA,statin,BB,john-i (3) HLD (hyperlipidemia) Code(s): E78.5 - HYPERLIPIDEMIA, UNSPECIFIED Status: Acute (4) Hypertension Code(s): I10 - ESSENTIAL (PRIMARY) HYPERTENSION Status: Acute (5) Chest pain Code(s): R07.9 - CHEST PAIN, UNSPECIFIED Status: Resolved Comment: d/t #1 - Plan DVT proph w/SCDs cont coreg,lisinopril,ASA,statin -: amlodipine on hold. may increase coreg further if BP high -: likely Dc tomroow if Ok w CTS & cardiology -: HD stable. -: ISS . * . Review of Systems - Review of Systems Constitutional: negative: fever, chills, sweats, weakness, malaise, other ENT: negative: Ear Pain, Ear Discharge, Nose Pain, Nose Discharge, Nose Congestion, Mouth Pain, Mouth Swelling, Throat Pain, Throat Swelling, Other Respiratory: negative: Cough, Dry, Shortness of Breath, Hemoptysis, SOB with Excertion, Pleuritic Pain, Sputum, Wheezing Cardiovascular: negative: chest pain, palpitations, orthopnea, paroxysmal nocturnal dyspnea, edema, light headedness, other Gastrointestinal: negative: Nausea, Vomiting, Abdominal Pain, Diarrhea, Constipation, Melena, Hematochezia, Other Genitourinary: negative: Dysuria, Frequency, Incontinence, Hematuria, Retention , Other Musculoskeletal: negative: Neck Pain, Shoulder Pain, Arm Pain, Back Pain, Hand Pain, Leg Pain, Foot Pain, Other Neurological: negative: Weakness, Numbness, Incoordination, Change in Speech, Confusion, Seizures, Other - Medications/Allergies Allergies/Adverse Reactions: Allergies Allergy/AdvReac Type Severity Reaction Status Date / Time No Known Allergies Allergy Verified 09/07/18 08:02 Medications: Current Medications Acetaminophen (Tylenol) 650 mg PO Q6H PRN PRN Reason: Headache/Fever or Mild Pain Hydrocodone Bitart/Acetaminophen ([place] 5/325) 1 tab PO Q4H PRN PRN Reason: Moderate Pain (4-6) Last Admin: 09/13/18 13:50 Dose: 1 tab Hydrocodone Bitart/Acetaminophen ([place] 5/325) 2 tab PO Q4H PRN PRN Reason: Severe Pain (7-10) Last Admin: 09/14/18 08:40 Dose: 2 tab Al Hydroxide/Mg Hydroxide (Maalox) 30 ml PO Q4H PRN PRN Reason: Indigestion Alprazolam (Xanax) 0.25 mg PO TIDPRN PRN PRN Reason: Anxiety Aspirin (Ecotrin) 325 mg PO DAILY [facility] Last Admin: 09/14/18 08:30 Dose: 325 mg Atorvastatin Calcium (Lipitor) 40 mg PO HS [facility] Bisacodyl (Dulcolax) 10 mg PO Q12H PRN PRN Reason: Constipation Bisacodyl (Dulcolax) 10 mg [place] Q12H PRN PRN Reason: Constipation Carvedilol (Coreg) 6.25 mg PO BID-[facility] Last Admin: 09/14/18 08:30 Dose: 6.25 mg Dextrose/Water (Dextrose 50%) 25 gm SLOW IVP PRN PRN PRN Reason: PER HYPOGLYCEMIC PROTOCOL Famotidine (Pepcid) 20 mg PO BID [facility] Last Admin: 09/14/18 08:39 Dose: 20 mg Fentanyl (Sublimaze) 25 mcg SLOW IVP Q2H PRN PRN Reason: Moderate breakthrough pain Furosemide (Lasix) 40 mg PO DAILY [facility] Last Admin: 09/14/18 08:30 Dose: 40 mg Glucagon (Glucagon) 1 mg SC PRN PRN PRN Reason: PER HYPOGLYCEMIC PROTOCOL Guaifenesin/Dextromethorphan (Robitussin Dm) 15 ml PO Q4H PRN PRN Reason: Cough Dextrose/Water (D5w) 1,000 mls @ 0 mls/hr IV INF PRN PRN Reason: PRN HYPOGLYCEMIC PROTOCOL Insulin Human Regular (Humulin R) 0 units SC Q4H PRN; Protocol PRN Reason: POST OP SLIDING SCALE Lisinopril (Zestril) 2.5 mg PO DAILY [facility] Last Admin: 09/14/18 08:31 Dose: 2.5 mg Metformin HCl (Glucophage) 1,000 mg PO BID-WM [facility] Last Admin: 09/14/18 08:29 Dose: 1,000 mg Mineral Oil (Fleet Mineral Oil) 133 ml [place] DAILYPRN PRN PRN Reason: Constipation Nitroglycerin (Nitrostat) 0.4 mg SL Q5MIN PRN PRN Reason: Chest Pain Polyethylene Glycol (Miralax) 17 gm PO DAILY [facility] Last Admin: 09/14/18 08:31 Dose: 17 gm Potassium Chloride (Klor-Con 10) 10 meq PO QAM-[facility] Last Admin: 09/14/18 08:29 Dose: 10 meq Zolpidem Tartrate (Ambien) 5 mg PO HSPRN PRN PRN Reason: Insomnia
[2018-09-14] MEDS ORDERED: Atorvastatin Calcium 40 MG TAB PO SCH (21:00)
[2018-09-14] MEDS ORDERED: Atorvastatin Calcium 10 MG TAB PO SCH (21:00)
[2018-09-15] MEDS: HYDROcodone/Acetaminophen 5/325 mg Tablet PO PRN ×2 (04:05→09:08)
[2018-09-15 07:55] VITALS: TEMP 96.4
[2018-09-15] MEDS: Lisinopril 2.5 MG TAB PO SCH (09:01)
[2018-09-15] MEDS: metFORMIN 500 MG TAB PO SCH (09:01)
[2018-09-15] MEDS: Aspirin 325 mg Enteric Coated Tablet PO SCH (09:01)
[2018-09-15] MEDS: Carvedilol 6.25 MG TAB PO SCH (09:02)
[2018-09-15] MEDS: Famotidine 20 MG TAB PO SCH (09:02)
[2018-09-15] MEDS: Potassium Chloride 10 MEQ TAB PO SCH (09:02)
[2018-09-15] MEDS: Furosemide 40 MG TAB PO SCH (09:02)
[2018-09-15 09:03] VITALS: BP 142/79
[2018-09-15] MEDS: Polyethylene Glycol 3350 17 GM Packet PO SCH (09:03)
--- NOTE | 2018-09-15 11:36 | PDOC.EVN ---
Event Note - Event Note Event Note: DC SUMMARY #[id number]
--- NOTE | 2018-09-15 13:23 | EKG ---
Test Reason : POST CABG Blood Pressure : / mmHG Vent. Rate : 073 BPM Atrial Rate : 073 BPM P-R Int : 170 ms QRS Dur : 100 ms QT Int : 470 ms P-R-T Axes : 009 055 059 degrees QTc Int : 517 ms Normal sinus rhythm Prolonged QT Abnormal ECG When compared with ECG of 07-SEP-2018 10:18, No significant change was found Confirmed by DR. Elza THOMPSON ([id number]) on 09/15/2018 1:23:26 PM Referred By: VIOLETTE Confirmed By:DR. Elza THOMPSON
--- NOTE | 2018-09-15 22:42 | DIS ---
DATE OF ADMISSION: 09/07/2018 DATE OF DISCHARGE: 09/15/2018 ADMITTING DIAGNOSES: Anxiety, chest pain, non ST-elevation myocardial infarction, hypertension, diabetes mellitus type 2. DISCHARGE DIAGNOSES: Anxiety, stable; chest pain, status post coronary artery bypass grafting; non ST-elevation myocardial infarction, see above; diabetes mellitus type 2; hypertension. HOSPITAL COURSE: This is a 62-year-old male admitted to Internal Medicine Team followed by Cardiology and Cardiovascular surgery as well as Internal Medicine, was given medications for his coronary artery disease. Also, had a cardiac cath done and was taken to the OR for CABG. During his stay here, the patient was observed postoperatively for a few days. Arrangements were made for rehab. The patient was discharged by the cardiothoracic surgeon. I am dictating the surgery as I happened to be coming on service this morning and the patient was on my list. I did not have a chance to talk to the patient prior to discharge nor was I able to have any say in a manner. Further management outpatient by Cardiology team. The patient was gone by the time I got to the room. Job ID: [id number]
== END 2018-09-15 11:05 | disposition home or self-care (01) | DRG 233 ==
LOC: ERS 04:54 → 2SW 07:27 → OBSVTOIN 12:05 → 2NO 21:04 → CCU 09-11 06:50 → 2NO 09-13 13:06
PROVIDERS: ADMIT Internal Medicine; ATTEND Internal Medicine
PROC: 4A023N7 Measurement of Cardiac Sampling and Pressure, Left Heart, Percutaneous Approach (ICD-10-PCS; principal; 2018-09-07)
PROC: B2111ZZ Fluoroscopy of Multiple Coronary Arteries using Low Osmolar Contrast (ICD-10-PCS; 2018-09-07)
PROC: B2151ZZ Fluoroscopy of Left Heart using Low Osmolar Contrast (ICD-10-PCS; 2018-09-07)
PROC: 02110AW Bypass Coronary Artery, Two Arteries from Aorta with Autologous Arterial Tissue, Open Approach (ICD-10-PCS; 2018-09-11)
PROC: 03BC4ZZ Excision of Left Radial Artery, Percutaneous Endoscopic Approach (ICD-10-PCS; 2018-09-11)
PROC: 021209W Bypass Coronary Artery, Three Arteries from Aorta with Autologous Venous Tissue, Open Approach (ICD-10-PCS; 2018-09-11)
PROC: 06BQ4ZZ Excision of Left Saphenous Vein, Percutaneous Endoscopic Approach (ICD-10-PCS; 2018-09-11)
PROC: 5A1221Z Performance of Cardiac Output, Continuous (ICD-10-PCS; 2018-09-11)
DX: I25.10 Atherosclerotic heart disease of native coronary artery without angina pectoris (principal); I21.4 Non-ST elevation (NSTEMI) myocardial infarction; I10 Essential (primary) hypertension; M19.91 Primary osteoarthritis, unspecified site; E11.9 Type 2 diabetes mellitus without complications; F17.220 Nicotine dependence, chewing tobacco, uncomplicated; E66.9 Obesity, unspecified; E78.5 Hyperlipidemia, unspecified; F41.9 Anxiety disorder, unspecified; Z98.890 Other specified postprocedural states; Z79.84 Long term (current) use of oral hypoglycemic drugs
CPT/HCPCS: 36415; 36416; 36430; 71045; 80048; 80053; 82550; 82553; 82805; 83690; 84484; 85025; 85610; 85730; 86850; 86900; 86901; 93005; 93010; 93306; 93458; 93798; 93880; 94002; 94150; 94760; 99152; 99153; C1769; J0690; J1642; J1644; J1815; J1885; J2001; J2150; J2250; J2405; J2440; J2704; J2720; J3010; J3370; J3475; J3480; J7050; P9045; Q9967; S0017; S0028